=== PATIENT | male | born 1940 | race Caucasian/White ===

== ENCOUNTER 2024-10-12 10:14 | Outpatient (AMB) | payer MEDICARE, SELFPAY ==
--- OUTSIDE RECORDS SUMMARY | 2024-10-12 11:19 | XMS_ITS | Clinical Summary ---
Author Organization [facility] [employer] direct marketing concepts [facility] Address [address] [place] [address] Phone Care Team Providers Care Wireless Sales Associate Name Role Phone Fior Chavez MD Primary Care Provider [phone] Allergies Active Allergy Reactions Criticality Noted Date Comments Sulfa (Sulfonamide Antibiotics) Hives 01/18 Medications vit B complx/folic acid/lysine (B COMPLEX VITAMINS PO) daily. 0 Active multivitamin (MULTIPLE VITAMINS ORAL) Take by mouth daily. Active OMEPRAZOLE ORAL Take 20 mg by mouth 2 times daily. 0 Active SIMVASTATIN ORAL Take 20 mg by mouth daily. 0 Active tamsulosin HCl (TAMSULOSIN ORAL) Take 0.4 mg by mouth daily. 0 Active acetaminophen (TYLENOL) 500 mg tablet Take 1 tablet (500 mg total) by mouth as needed. Active mirtazapine (REMERON) 30 mg tablet Take 1 Tablet by mouth at bedtime. Active amLODIPine-benaz epril (LOTREL) 5-10 mg per capsule Take 1 capsule by mouth 1 (one) time each day. Active vit A/vit C/vit E/zinc/copper (PRESERVISION AREDS ORAL) Take 32 capsules by mouth 1 (one) time each day. Active melatonin 3 mg tablet Take 10 mg by mouth at bedtime. Active gabapentin (NEURONTIN) 100 mg capsule Take 1 capsule (100 mg total) by mouth at bedtime. Active peg 400-propylene glycol, PF, (Systane, PF,) 0.4-0.3 % dropperette Administer into both eyes 1 (one) time each day if needed. 1 drop Active Active Problems Problem Noted Date Diagnosed Date Shortness of breath 01/31/2024 Assessment & Plan (01/31/2024 5:16 PM EST): Patient is exhibited symptoms of decreased exercise tolerance. Has risk factors for coronary disease. He will be sent for a stress test throughout the possibility underlying ischemic disease Bradycardia 02/03/2020 Overview (01/23/2024): Last Assessment & Plan: Patient with no complaints of palpitations lightheadedness or dizziness. No bradycardia. He is off beta-bulmaro therapy. His blood pressures under excellent control on amlodipine. Recent Holter monitor with no evidence of sustained arrhythmias. At this point with a negative echo and negative stress test and the Holter is benign I will see the patient on an as-needed basis I will continue present medical therapy for hypertension and have him follow-up as needed. Assessment & Plan (01/31/2024 10:07 AM EST): Orders: ECG 12 lead Hypertension 02/03/2020 Overview (01/23/2024): Last Assessment & Plan: Blood pressures under excellent control medically Medical History Medical History Date Comments Essential hypertension DX:Essent ial hypertension Family History Medical History Relation Name Comments Hypertension Father Anemia Mother Hypertension Mother Hypertension Sister Relation Name Status Comments Father Mother Sister Alive Social History Tobacco Use Types Packs/Day Years Used Date Smoking Tobacco: Never Smokeless Tobacco: Never Alcohol Use Standard Drinks/Week Comments Not Currently 0 (1 standard drink = 0.6 oz pur e alcohol) socially Sex and Gender Information Value Date Recorded Sex Assigned at Male 03/25/2024 11:47 AM EST Legal Sex Male 5:41 AM EST Gender Identity Male 03/25/2024 11:47 AM EST Sexual Orientation Choose not to disclose 2024 11:47 AM EST Obstetrics History Last Filed Vital Signs Vital Sign Reading Time Taken Comments Blood Pressure 160/69 03/10/2024 8:49 AM EST Pulse 65 01/31/2024 9:19 AM EST Temperature - - Respiratory Rate - - Oxygen Saturation 98% 01/31/2024 9:19 AM EST Inhaled Oxygen Concentration - - Weight 64 kg (141 lb) 03/10/2024 8:32 AM EST Height 162.6 cm (5' 4 ) 03/10/2024 8:32 AM EST Body Mass Index 24.2 03/10/2024 8:32 AM EST Plan of Treatment Health Maintenance Due Date Last Done Comments Cholesterol Screening (Lipid Panel) 01/21/2022 Falls Risk Assessment 01/21/2022 Social Influencers of Health Screening 01/21/2022 Hypertension/CHF/CAD Annual BMP Blood Test 01/31/2022 Medicare Annual Wellness Visit 05/15/2023 05/14/2022 Depression Screening 02/19/2024 COVID-19 Vaccine ( season) 2024 01/22/2024, 11/07/2022, 10/25/2021, Additional history exists Influenza Vaccine (#1) 2024 , 10/31/2022, 10/25/2021, Additional history exists DTaP,Tdap,and Td Vaccines (2 - Td or Tdap) 02/08/2028 02/07/2018 Pneumococcal Vaccine: 50+ Years Completed 12/27/2015, 04/19/2014 Zoster Vaccines Completed 01/16/2020, 10/21, 11/16/2019, Additional history exists RSV Immunization Adult Patients Completed 11/07/2022 HIB Vaccines Aged Out No longer eligi ble based on patient's age to complete this topic HPV Vaccines Aged Out No longer eligi ble based on patient's age to complete this topic Hepatitis A Vaccines Aged Out No long er eligible based on patient's age to complete this topic Hepatitis B Vaccines Aged Out No long er eligible based on patient's age to complete this topic IPV Vaccines Aged Out No longer eligi ble based on patient's age to complete this topic MMR Vaccines Aged Out No longer eligi ble based on patient's age to complete this topic Meningococcal ACWY Vaccine Aged Out N o longer eligible based on patient's age to complete this topic Meningococcal B Vaccine Aged Out No l onger eligible based on patient's age to complete this topic RSV Immunization Patients Under 20 months Aged Out No longer eligible based on patient's age to complete this topic Varicella Vaccines Aged Out No longer eligible based on patient's age to complete this topic Insurance MEDICARE [facility] Care Teams Wireless Sales Associate Relationship Specialty Start Date End Date Fior Chavez MD [address] [phone] PCP - General 01/04/22
--- OUTSIDE RECORDS SUMMARY | 2024-10-12 11:19 | XMS_ITS | Clinical Summary ---
Author Organization [facility], Address [address] [place] [address] [place] [address] Phone Care Team Providers Care Log Chipper Operator Name Role Phone Fior Chavez MD Primary Care Provider [phone] Allergies Active Allergy Reactions Criticality Noted Date Comments Sulfa Antibiotics Hives High 02/22/2020 Sulfur Hives 09/18/2022 Medications acetaminophen (TYLENOL) 500 MG tablet Take by mouth every 6 (six) hours if needed for mild pain Active ascorbic acid (VITAMIN C) 500 MG CR capsule Take 500 mg by mouth 1 (one) time each day Active B complex tablet Take 1 tablet by mouth 1 (one) time each day Active butalbital-acet aminophen-caffe ine (FIORICET, ESGIC) 50-325-40 MG per tablet Take 1 tablet by mouth every 4 (four) hours if needed for headaches Active ferrous sulfate 325 (65 Fe) MG tablet Take 325 mg by mouth 1 (one) time each day with breakfast Active Multiple Vitamin (multivitamin) capsule Take 1 capsule by mouth 1 (one) time each day Active omeprazole (PriLOSEC) [address] capsule Take 20 mg by mouth 1 (one) time each day Do not crush or chew. Active Polyethyl Glycol-Propyl Glycol (Systane) 0.4-0.3 % solution Administer into affected eye(s) Active tamsulosin (FLOMAX) 0.4 MG 24 hr capsule Take 0.4 mg by mouth 1 (one) time each day Active Cholecalciferol (Vitamin D3) 25 MCG (1000 UT) chewable tablet Chew Acti ve alpha tocopherol (VITAMIN E) 400 units capsule Take 400 Units by mouth 1 (one) time each day Active amLODIPine-moira zepril (LOTREL 5-10) 5-10 MG per capsule TAKE 1 CAPSULE BY MOUTH EVERY DAY DIRECTED 3 Active mirtazapine (REMERON) 45 MG tablet Take 45 mg by mouth 1 (one) time each day in the evening 3 Active Active Problems Problem Noted Date Diagnosed Date Stage 3a chronic kidney disease 02/22/2020 Hypertension 02/22/2020 Immunizations Immunization Administration Dates Next Due H1N1 All Forms 03/03/2009 Influenza (IM) Preservative Free 11/03/2014,12/19 Influenza Split High Dose Pr eservative Free IM 12/12/2018,11/19/2017,01/04/2017,10/19 Influenza TIV (IM) 12/03/2012, 2,10/19/2009,10/19,11/18/2006 Influenza Vaccine, Quadrival ent, Adjuvanted 11/05/2019 Pneumococcal Conjugate 13-Valent 04/19/2014 Pneumococcal Polysaccharide 12/27/2015 Td 02/07/2018 Zoster 11/16/2019,12/03/2012 Social History Tobacco Use Types Packs/Day Years Used Date Smoking Tobacco: Never Smokeless Tobacco: Never Sex and Gender Information Value Date Recorded Sex Assigned at Not on file Legal Sex Male 3:40 PM EST Gender Identity Not on file Sexual Orientation Not on file Last Filed Vital Signs Vital Sign Reading Time Taken Comments Blood Pressure 140/60 01/17/2024 4:05 PM EST Pulse - - Temperature - - Respiratory Rate - - Oxygen Saturation - - Inhaled Oxygen Concentration - - Weight - - Height - - Body Mass Index - - Plan of Treatment Health Maintenance Due Date Last Done Comments Influenza Vaccine (#1) 2024 0, 12/12/2018, 11/19/2017, Additional history exists Pneumococcal Vaccine: 50+ Years Completed 12/27/2015, 04/19/2014 Pneumococcal Vaccine: Peds (0 to 5 Years) and At-Risk Patients (6 to 49 Years) Discontinued 12/27/2015, 04/19/2014 Hepatitis B Vaccine Aged Out No longe r eligible based on patient's age to complete this topic Insurance Medicare [facility] Care Teams Log Chipper Operator Relationship Specialty Start Date End Date Fior Chavez MD [address] [phone] PCP - General Family Medicine 09/22/21
== END 2024-10-13 10:06 | disposition home or self-care (01) ==
LOC: HO.HMGAL 10:14
PROVIDERS: PCP Family Medicine; Visit Provider Registered Nurse Emergency
DX: J30.89 Other allergic rhinitis (principal)
CPT/HCPCS: 95117; 95165

== ENCOUNTER 2024-11-11 10:20 | Outpatient (AMB) | payer MEDICARE, SELFPAY ==
--- OUTSIDE RECORDS SUMMARY | 2024-11-11 12:43 | XMS_ITS | Clinical Summary ---
Author Organization [facility], Address [address] [place] [address] [place] [address] Phone Care Team Providers Care Solar Sales Manager Name Role Phone Fior Chavez MD Primary Care Provider [phone] Allergies Active Allergy Reactions Criticality Noted Date [...] age to complete this topic Insurance Medicare [facility] Care Teams Solar Sales Manager Relationship Specialty Start Date End Date Fior Chavez MD [address] [phone] PCP - General Family Medicine 09/22/21
== END 2024-11-11 10:27 | disposition home or self-care (01) ==
LOC: HO.HMGAL 10:20
PROVIDERS: PCP Family Medicine; Visit Provider Registered Nurse Emergency
DX: J30.89 Other allergic rhinitis (principal)
CPT/HCPCS: 95117; 95165

== ENCOUNTER 2024-12-09 11:14 | Outpatient (AMB) | payer MEDICARE, SELFPAY ==
--- OUTSIDE RECORDS SUMMARY | 2024-12-09 15:19 | XMS_ITS | Clinical Summary ---
Author Organization [facility] [employer] [facility] Address [address] [place] [address] Phone Care Team Providers Care Mr Teacher Name Role Phone Fior Chavez MD Primary Care Provider [phone] Allergies Active Allergy Reactions Criticality Noted Date [...] age to complete this topic Insurance MEDICARE [facility] Care Teams Mr Teacher Relationship Specialty Start Date End Date Fior Chavez MD [address] [phone] PCP - General 01/04/22
== END 2024-12-09 11:30 | disposition home or self-care (01) ==
LOC: HO.HMGAL 11:14
PROVIDERS: PCP Family Medicine; Visit Provider Registered Nurse Emergency
DX: J30.89 Other allergic rhinitis (principal)
CPT/HCPCS: 95117; 95165

== ENCOUNTER 2025-01-06 09:56 | Outpatient (AMB) | payer MEDICARE, SELFPAY ==
--- OUTSIDE RECORDS SUMMARY | 2025-01-06 18:34 | XMS_ITS | Data Portability ---
Author Organization [place], Main Office Address [address] [facility] [address] [place] [phone] Care Team Providers Care Tile Mechanic Name Role Phone KAREN STONE Clinical Lab Scientist [facility] Neurologist [phone] KAREN WILLIAMSON Clinical Lab Scientist HUMBERTO SEGURA Retail Attendant [phone] BIA PINEDA Urologist NHUNG YARBROUGH Senior Director Insight HUMBERTO ANDERSON Delivery Truck Driver LEYLA ROA Primary Care Provider Assessment Encounter Date Assessment Date Assessment LastModified by Organization Details LastModified Time 09/19/2023 09/19/2023 This service was provided using telemedicine. Patient consented to telephone visit Patient was located in the [facility]. Provider was located in the office. No other persons participated in the telemedicine visit except for the patient unless otherwise indicated here. Total time of visit was 10 minutes. [email or web address] Not available 09/19/2023 15:34:54 Plan of Treatment Reminders Order Date Submit Date Provider Last Modified By Organization Details Last Modified Time Details Appointments [id number] 2024 10:00A Red Roa MD Not available Not available Not available Lab None record ed. Referral hand surgeo n referr al - left ring finger trigge r finger x 2 months 2024 025 [email or web address] [facility], [address], [address], [place], [address], 10/21/2024 14:29:43 physic al medici ne and rehabi litati on referr al 2024 025 DAREN Chino MD, [address] [facility], [facility] [address], [place], [address], 07/24/2024 15:44:17 breast center referr al 2024 025 belinda [facility], [address], [address], [place], [address], 07/09/2024 10:59:58 urolog ist referr al 2023 024 [facility], [address], [place], [address], 03/16/2024 09:16:25 Procedures None record ed. Surgeries None record ed. Imaging XR, lumbar spine 2024 025 [facility], [address], [place], [address], 07/03/2024 14:33:55 XR, hip, unilat eral, 2 or 3 view 2024 025 [facility], [address] [place], [address], 07/03/2024 14:33:16 US, breast , unilat eral - + mild gyneco mastia B L breast - no nipple dc, + skin tag on nipple (has always been there as per pt), + tender at 3:00 positi on adjace nt to nipple , no mass apprec iated 2024 025 pmadden [facility], [address], [address], [place], [address], 08/06/2024 13:51:11 MAMMO, diagno stic, digita l, unilat eral 2024 025 [email or web address], [address], [address], [place], [address], 08/03/2024 11:09:11 Medication Orders tadala pernell 2.5 mg tablet 2024 025 [facility]acy #[id number], [address] [place], [address], 09/01/2024 14:03:12 Paxlov id 300 mg (150 mg x 2)-100 mg tablet s in a dose pack 2023 024 [facility] #[id number], [address] [place], [address], 01/15/2024 10:28:58 Patient TargetsNo targets recorded. Patient Instructions Encounter Date Encounter Id Patient Instructions Last Modified By Organization Details Last Modified Time 09/19/2023 [id number] 10 things to do when you have covid-19 [email or web address] Not available 09/19/2023 15:32:22 01/15/2024 [id number] advance care planning: care instructions [email or web address] Not available 01/15/2024 10:56:24 medicines to avoid with kidney disease: care instructions [email or web address] Not available 01/15/2024 10:44:05 benign prostatic hyperplasia: care instructions ckokar Not available 01/15/2024 10:44:05 07/02/2024 [id number] Patient will follow up and keep appointment as scheduled. [email or web address] Not available 07/02/2024 10:47:14 09/01/2024 [id number] medicines to avoid with kidney disease: care instructions ckokar Not available 09/01/2024 14:03:11 benign prostatic hyperplasia: care instructions ckokar Not available 09/01/2024 14:03:11 10/21/2024 [id number] wearing a splint: care instructions Not available 10/21/2024 14:23:52 trigger finger: care instructions Not available 10/21/2024 15:39:30 I have reviewed the note and agree with the assessment and plan of care. [email or web address] Not available 10/21/2024 17:21:03 Reason for Referral Urologist Referral for Benig n prostatic hyperplasia Referring Physician: Leyla Roa, Family Medicine, Encounter Date: 01/15/2024 Breast Center Referral for P ain of left breast Referring Physician: Renato Ferguson, Internal Medicine, Encounter Date: 07/02/2024 Physical Medicine And Rehabi litation Referral for Acute low back pain Referring Physician: Renato Ferguson, Internal Medicine, Encounter Date: 07/02/2024 Hand Surgeon Referral for Tr iggering of digit left ring finger trigger finger x 2 months Referring Physician: Guerline Stewart, Family Medicine, Encounter Date: 10/21/2024 Results Created Date Observation Date Name Description Value Unit Range Abnormal Flag Note LastModifiedBy Organization Detail LastModifiedTime 08/27/19 24 08/27/2023 HARLEY, PE AND FLC, SERUM please note: [facility] will follo w via compu ter, mail, or couri er catie dunlap. Not Available [facility] ([facility]) [address] [place], [address], 09/02/2023 14:14:12 08/27/19 24 08/28/2023 HARLEY, PE AND FLC, SERUM immunoglobul in g, qn, serum 842 mg/dL 603-16 13 Not Available [facility] ([facility]) [address] [place], [address], 09/02/2023 14:14:12 08/27/19 24 08/28/2023 HARLEY, PE AND FLC, SERUM immunoglobul in A, qn, serum 84 mg/dL 61-437 Not Available [facility] ([facility]) [address] [place], [address], 09/02/2023 14:14:12 08/27/19 24 08/28/2023 HARLEY, PE AND FLC, SERUM immunoglobul in M, qn, serum 68 mg/dL 15-143 Not Available [facility] ([facility]) [address] [place], [address], 09/02/2023 14:14:12 08/27/19 24 08/28/2023 HARLEY, PE AND FLC, SERUM protein, total 6.5 g/dL 6.0-8. 5 Not Available [facility] ([facility]) [address] [place], [address], 09/02/2023 14:14:12 08/27/19 24 08/28/2023 HARLEY, PE AND FLC, SERUM free kappa lt chains,S 20.4 mg/L 3.3-19 .4 above high normal Not Available [facility] ([facility]) [address] [place], [address], 09/02/2023 14:14:12 08/27/19 24 08/28/2023 HARLEY, PE AND FLC, SERUM free lambda lt chains,S 16.2 mg/L 5.7-26 .3 Not Available [facility] ([facility]) [address] [place], [address], 09/02/2023 14:14:12 08/27/19 24 08/28/2023 HARLEY, PE AND FLC, SERUM kappa/lambda ratio,S 1.26 0.26-1 .65 Not Available [facility] ([facility]) [address] [place], [address], 09/02/2023 14:14:12 08/27/19 24 08/29/2023 HARLEY, PE AND FLC, SERUM albumin 3.3 g/dL 2.9-4. 4 Not Available [facility] ([facility]) [address] [place], [address], 09/02/2023 14:14:12 08/27/19 24 08/29/2023 HARLEY, PE AND FLC, SERUM pchku-2-efne ulin 0.3 g/dL 0.0-0. 4 Not Available [facility] ([facility]) [address] [place], [address], 09/02/2023 14:14:12 08/27/19 24 08/29/2023 HARLEY, PE AND FLC, SERUM slycg-7-obub ulin 0.9 g/dL 0.4-1. 0 Not Available [facility] ([facility]) [address] [place], [address], 09/02/2023 14:14:12 08/27/19 24 08/29/2023 HARLEY, PE AND FLC, SERUM beta globulin 0.9 g/dL 0.7-1. 3 Not Available [facility] ([facility]) [address] [place], [address], 09/02/2023 14:14:12 08/27/19 24 08/29/2023 HARLEY, PE AND FLC, SERUM gamma globulin 1.1 g/dL 0.4-1. 8 Not Available [facility] ([facility]) [address] [place], [address], 09/02/2023 14:14:12 08/27/19 24 08/29/2023 HARLEY, PE AND FLC, SERUM M-spike Not Observ ed g/dL not observ ed Not Available [facility] ([facility]) [address], [place], [address], 09/02/2023 14:14:12 08/27/19 24 08/29/2023 HARLEY, PE AND FLC, SERUM globulin, total 3.2 g/dL 2.2-3. 9 Not Available [facility] ([facility]) [address] [place], [address], 09/02/2023 14:14:12 08/27/19 24 08/29/2023 HARLEY, PE AND FLC, SERUM A/G ratio 1.1 0.7-1. 7 Not Available [facility] ([facility]) [address] [place], [address], 09/02/2023 14:14:12 08/27/19 24 08/29/2023 HARLEY, PE AND FLC, SERUM immunofixati on result, serum Commen t The immun ofixa travis bautista rn appea rs unrem arkab le. Evide nce of monoc lonal prote in is not appar ent. Not Available [facility] ([facility]) [address] [facility], [place], [address], 09/02/2023 14:14:12 08/27/19 24 08/29/2023 HARLEY, PE AND FLC, SERUM pdf . Not Available [facility] ([facility]) [address] [facility], [place], [address], 09/02/2023 14:14:12 08/27/19 24 08/27/2023 HARLEY AND PE, RANDO M URINE note: Commen t Prote in elect [facility] resis scan will follo w via compu ter, mail, or couri manan dunlap. Not Available [facility] ([facility]) [address] [facility], [place], [address], 09/02/2023 14:14:13 08/27/19 24 08/28/2023 HARLEY AND PE, RANDO M URINE protein,tota l,urine 11.8 mg/dL not estab. Not Available [facility] ([facility]) [address] [place], [address], 09/02/2023 14:14:13 08/27/19 24 08/29/2023 HARLEY AND PE, RANDO M URINE albumin, U 25.9 % Not Available [facility] ([facility]) [address] [facility], [place], [address], 09/02/2023 14:14:13 08/27/19 24 08/29/2023 HARLEY AND PE, RANDO M URINE dlnej-2-iynb ulin, U 4.3 % Not Available [facility] ([facility]) [address] [place], [address], 09/02/2023 14:14:13 08/27/19 24 08/29/2023 HARLEY AND PE, RANDO M URINE eygyo-5-qvyc ulin, U 17.5 % Not Available [facility] ([facility]) [address] [facility], [place], [address], 09/02/2023 14:14:13 08/27/19 24 08/29/2023 HARLEY AND PE, RANDO M URINE beta globulin, U 34.0 % Not Available [facility] ([facility]) [address] [place], [address], 09/02/2023 14:14:13 08/27/19 24 08/29/2023 HARLEY AND PE, RANDO M URINE gamma globulin, U 18.3 % Not Available [facility] ([facility]) [address] [place], [address], 09/02/2023 14:14:13 08/27/19 24 08/29/2023 HARLEY AND PE, RANDO M URINE M-spike, % Not Observ ed % not observ ed Not Available [facility] ([facility]) [address] [facility], [place], [address], 09/02/2023 14:14:13 08/27/19 24 08/29/2023 HARLEY AND PE, RANDO M URINE immunofixati on result, urine Commen t The immun ofixa tion lily rn appea rs unrem arkab le. Evide nce of monoc lonal prote in is not appar ent. Not Available [facility] ([facility]) [address] [place], [address], 09/02/2023 14:14:13 08/27/19 24 08/29/2023 HARLEY AND PE, RANDO M URINE pdf . Not Available [facility] ([facility]) [address] [place], [address], 09/02/2023 14:14:13 08/27/19 24 08/27/2023 TICK- BORNE DISEA SE AB PROFI LE result comments: Commen t Antib real titer s may be negat hernán in the first 7-10 days of illne ss. A four- fold rise in IgG antib real titer s for Babes ia micro ti, Anapl asma phago cytop hilum , and/o r Ehrli tonie chaff eensi s in paire d sampl es (acut e and conva lesce nt) suppo rts the diagn osis of babes iosis , anapl asmos is, and/o r ehrli chios is, respe ctive ly. Not Available [facility] ([facility]) [address] [facility], [place], [address], 09/02/2023 14:14:13 08/27/19 24 08/28/2023 TICK- BORNE DISEA SE AB PROFI LE lyme total antibody krystal Negati ve negati ve Lyme antib odies not detec schuyler. Refle x testi ng is not indic ated. No labor atory evide nce of infec tion with B. burgd orfer i (Lyme disea se). Negat hernán resul ts may occur in patie nts recen tly infec schuyler (less than or equal to 14 days) with B. burgd orfer i. If recen t infec tion is suspe cted, repea t testi ng on a new sampl e colle cted in 7 to 14 days is recom adrien d. Not Available [facility] ([facility]) [address] [facility], [place], [address], 09/02/2023 14:14:13 08/27/19 24 08/30/2023 TICK- BORNE DISEA SE AB PROFI LE E. chaffeensis IgG Negati ve neg:<1 :64 Not Available [facility] ([facility]) [address] [facility], [place], [address], 09/02/2023 14:14:13 08/27/19 24 08/30/2023 TICK- BORNE DISEA SE AB PROFI LE A. phagocytophi lum IgG Negati ve neg:<1 :64 Not Available [facility] ([facility]) [address] [place], [address], 09/02/2023 14:14:13 08/27/19 24 09/02/2023 TICK- BORNE DISEA SE AB PROFI LE babesia microti IgG <1:10 neg:<1 :10 Not Available [facility] ([facility]) [address] [place], [address], 09/02/2023 14:14:13 08/27/19 24 08/28/2023 HEMOG LOBIN A1C hemoglobin A1C 5.4 % 4.8-5. 6 Predi abete s: 5.7 - 6.4 Diabe trini: >6.4 Glyce avi contr ol for adult s with diabe trini: <7.0 Not Available [facility] ([facility]) [address] [place], [address], 09/02/2023 14:14:14 08/27/19 24 08/28/2023 RHEUM ATOID FACTO R (RF) rheumatoid factor (rf) 10.8 IU/mL <14.0 Not Available [facility] ([facility]) [address] [place], [address], 09/02/2023 14:14:15 08/27/19 24 08/30/2023 VITAM IN B1 (THIA MINE) , BLOOD vit. B1, whole blood 192.4 nmol/ L 66.5-2 00.0 Not Available [facility] ([facility]) [address] [place], [address], 09/02/2023 14:14:15 08/27/19 24 08/29/2023 CCP ANTIB ODIES IGG/I GA ccp antibodies IgG/IgA 10 units 0-19 Negat hernán <20 Weak posit hernán 20 - 39 Moder ate posit hernán 40 - 59 Stron g posit hernán >59 Value s above 250 units are repor schuyler at the reque st of the [facility] t. Such value s are beyon d the linea rity range of the assay . Not Available [facility] ([facility]) [address] [facility], [place], [address], 09/02/2023 14:14:16 08/27/19 24 08/28/2023 TSH RFX ON ABNOR MAL TO FREE T4 TSH 1.140 uIU/m L 0.450- 4.500 Not Available [facility] ([facility]) [address] [facility], [place], [address], 09/02/2023 14:14:17 08/27/19 24 08/28/2023 SEDIM ENTAT ION RATE- WESTE RGREN sedimentatio n rate-westerg terence 17 mm/HR 0-30 Not Available [facility] ([facility]) [address] [facility], [place], [address], 09/02/2023 14:14:18 08/27/19 24 08/28/2023 C-RENALDO CTIVE PROTE IN, QUANT C-reactive protein, quant 5 mg/L 0-10 Not Available [facility] ([facility]) [address] [facility], [place], [address], 09/02/2023 14:14:19 08/27/19 24 08/30/2023 ALEE BY IFA RFX TITER /RIGOBERTO MESHA ALEE by ifa rfx titer/patter n Negati ve Negat hernán <1:80 Borde rline 1:80 Posit hernán >1:80 ICAP nomen clatu re: AC-0 For more infor matio n about Hep-2 cell patte rns use ANAsam ttern s.org , the offic ial joann te for the Inter natio nal Conse nsus on Antin uclea r Antib real (ALEE) Patte rns (ICAP ). Not Available [facility] ([facility]) [address] [facility], [place], [address], 09/02/2023 14:14:19 11/06/19 24 11/06/2023 ankle brach ial index , compl ete No observ ation record ed. [facility] (Pulmonary Lab) [address] [place], [address], 11/07/2023 08:41:33 01/31/20 24 ECG 12-le ad No observ ation record ed. [address], [address], 01/31/2024 17:14:15 02/21/19 25 02/17/2024 stres s test only exerc ise No observ ation record ed. [address], [address], 02/23/2024 18:52:30 03/10/19 25 03/10/2024 nm stres s test with myoca rdial perfu jeff No observ ation record ed. [address], [address], 03/11/2024 06:15:39 03/18/19 25 03/10/2024 cardi ac stres s test No observ ation record ed. [facility] [address] [facility] [address], [place], [address], 03/18/2024 15:14:10 07/04/19 25 07/02/2024 XR, hip, unila teral , 2 or 3 view Hip Comp 2 Views Right Reason : Pain in right hip COMPAR ARNAUD: None. FINDIN GS: No fractu re or disloc ation. Subcho ndral cysts and mild subcho ndral sclero sis of the right hip. Phlebo liths in the pelvis . IMPRES JEFF: Mild degene rative change of the right hip. WSN: [id number] Orderi ng Physic lanie: Steve Ferguson Dictat ed By: Sahil MEJIA, Levi Cardenas Dictat ed Date/T yang: 2:30 pm Review ed By: Levi Baxter MD Signed By: Levi Baxter MD Signed Date/T yang: 2:30 pm Transc ribed By: ZEHRA Transc ribed Date/T yang: 2:29 pm Patien t Class: Outpat ient [facility] (Outpt Imaging) [address] [place], [address], 07/04/2024 16:14:24 07/04/19 25 07/02/2024 XR, lumba r spine Lumbar Spine 2 or 3 Views Reason : low back pain COMPAR ARNAUD: None. FINDIN GS: No bone lesion s or fractu res. Mild multif ocal degene rative disc endpla te spurri ng and disc space narrow ing. Multil evel bilate ral facet hypert rophy in the lower lumbar spine. Normal alignm ent. No spondy lolysi s or spondy lolist hesis. Mild vascul ar calcif icatio ns. IMPRES JEFF: Degene rative change s but no eviden ce of an acute proces s. WSN: [id number] Orderi ng Physic lanie: Steve Ferguson Dictat ed By: Levi Baxter MD Dictat ed Date/T yang: 2:30 pm Review ed By: Levi Baxter MD Signed By: Levi Baxter MD Signed Date/T yang: 2:30 pm Transc ribed By: ZEHRA Transc ribed Date/T yang: 2:30 pm Patien t Class: Outpat ient [facility] (Outpt Imaging) [address] [place], [address], 07/04/2024 16:14:24 08/07/19 25 08/06/2024 US, breas t, limit ed PROCED URE: MM Digita l Mammo Bilate ral, US Breast Left Limite d INDICA TION: Left breast pain. No known palpab le abnorm alitie s. COMPAR ARNAUD: No prior. TECHNI QUE: Full-f ield digita l CC and MLO 3D tomosy nthesi s images of both breast s were acquir ed. Comput er-aid ed detect ion (CAD) was utiliz ed in the interp retati on of this study. Diagno stic ultras ound of the left breast in the area of pain was perfor med. This is a male patien t. DENSIT Y: There are scatte red areas of fibrog landul ar densit y. FINDIN GS: There is bilate ral gyneco mastia . No suspic ious masses , suspic ious microc alcifi cation s, or areas of holly ectura l distor tion are seen in either breast to sugges t malign urszula. Sonogr aphic evalua tion of the left breast in the area of pain, retroa reolar region was perfor med. Asymme tric left greate r than right gyneco mastia is presen t. IMPRES JEFF: No mammog raphic eviden ce of malign urszula. Asymme tric left greate r than right gyneco mastia . Clinic al follow -up is advise d. RECOMM ENDATI ON: Clinic al follow -up and manage ment BI-RAD S: 2 (Benbijal n) Lay letter mailed to patien t WSN: [id number] Orderi ng Physic lanie: Steve Ferguson Dictat ed By: Regina Thomas MD Dictat ed Date/T yang: 1:41 pm Review ed By: Regina Thomas MD Signed By: Regina Thomas MD Signed Date/T yang: 1:41 pm Transc ribed By: ZEHRA Transc ribed Date/T yang: 1:18 pm Patien t [facility] [address] , [place], [address], 08/20/2024 10:38:04 08/07/19 25 08/06/2024 mm digit al mammo bilat eral PROCED URE: MM Digita l Mammo Bilate ral, US Breast Left Limite d INDICA TION: Left breast pain. No known palpab le abnorm alitie s. COMPAR ARNAUD: No prior. TECHNI QUE: Full-f ield digita l CC and MLO 3D tomosy nthesi s images of both breast s were acquir ed. Comput er-aid ed detect ion (CAD) was utiliz ed in the interp retati on of this study. Diagno stic ultras ound of the left breast in the area of pain was perfor med. This is a male patien t. DENSIT Y: There are scatte red areas of fibrog landul ar densit y. FINDIN GS: There is bilate ral gyneco mastia . No suspic ious masses , suspic ious microc alcifi cation s, or areas of holly ectura l distor tion are seen in either breast to sugges t malign urszula. Sonogr aphic evalua tion of the left breast in the area of pain, retroa reolar region was perfor med. Asymme tric left greate r than right gyneco mastia is presen t. IMPRES JEFF: No mammog raphic eviden ce of malign urszula. Asymme tric left greate r than right gyneco mastia . Clinic al follow -up is advise d. RECOMM ENDATI ON: Clinic al follow -up and manage ment BI-RAD S: 2 (Benig n) Lay letter mailed to calderon benites WSN: [id number] Orderi ng Physic lanie: Steve Ferguson Dictat ed By: Regina Thomas MD Dictat ed Date/T yang: 1:41 pm Review ed By: Regina Thomas MD Signed By: Regina Thomas MD Signed Date/T yang: 1:41 pm Transc ribed By: ZEHRA Transc riptio n Date/T yang: 1:18 pm Birads : Calderon benites [facility] [address] [facility], [place], [address], 08/20/2024 10:38:04 Result Notes Documentation Provider Name and Address Organization Details Recorded Time Xr, Hip, Unilateral, 2 Or 3 View : Hip Comp 2 Views Right Reason: Pain in right hip COMPARISON: None. FINDINGS: No fracture or dislocation. Subchondral cysts and mild subchondral sclerosis of the right hip. Phleboliths in the pelvis. IMPRESSION: Mild degenerative change of the right hip. WSN: [id number] Ordering Physician: Renato Ferguson Dictated By: Philippe Baxter MD Dictated Date/Time: 07/03/24 2:30 pm Reviewed By: Philippe Baxter MD Signed By: Philippe Baxter MD Signed Date/Time: 07/03/24 2:30 pm Transcribed By: ZEHRA Transcribed Date/Time: 07/03/24 2:29 pm Patient Class: Outpatient Renato Ferguson PA-C [address], [address], [facility] 07/04/2024 10:17:36 Xr, Lumbar Spine : Lumbar Spine 2 or 3 Views Reason: low back pain COMPARISON: None. FINDINGS: No bone lesions or fractures. Mild multifocal degenerative disc endplate spurring and disc space narrowing. Multilevel bilateral facet hypertrophy in the lower lumbar spine. Normal alignment. No spondylolysis or spondylolisthesis. Mild vascular calcifications. IMPRESSION: Degenerative changes but no evidence of an acute process. WSN: [id number] Ordering Physician: Renato Ferguson Dictated By: Philippe Baxter MD Dictated Date/Time: 07/03/24 2:30 pm Reviewed By: Philippe Baxter MD Signed By: Philippe Baxter MD Signed Date/Time: 07/03/24 2:30 pm Transcribed By: ZEHRA Transcribed Date/Time: 07/03/24 2:30 pm Patient Class: Outpatient Renato Ferguson PA-C [address], [address], [facility] 07/04/2024 10:17:36 Problems Name Problem SNOMED Code Status Onset Date Resolution Date Notes Provider Name and Address Organization Details Recorded Time Fatigue 34099102 Completed 05/13/2022 Leyla Roa MD [address], [phone], [facility] 3 15:08:27 Cervical radiculo alicia [id number] Active [facility] 11:24:59 Cataract [id number] Completed 05/12/2021 Leyla Roa MD [address], [place], [address], [facility] 2 10:34:57 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 Aaliyah Gonsales CPPM null, [facility] 2 11:24:59 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 Aaliyah Gonsales CPPM null, [facility] 2 11:24:58 Screenin g for malignan t neoplasm of colon Completed 200809/24/2013 RECORDED 06/16/19 09 8:27AM BY BHARATI SAUER MA, ANNOTATI ON/ADDEN DUM Samantha CROCKETT-C [address] [facility] [address], [place], [address], [facility] 5 10:40:06 Screenin g for malignan t neoplasm of colon Completed 200809/25/2013 RECORDED 06/16/19 09 8:27AM BY BHARATI SAUER MA, ANNOTATI ON/ADDEN DUM Samantha MELGARC [address] [facility] [address], [place], [address], [facility] [place] 5 10:40:06 Screenin g for malignan t neoplasm of colon Completed 200809/01/2013 RECORDED 06/16/19 09 8:27AM BY BHARATI SAUER MA, ANNOTATI ON/ADDEN DUM Samantha CROCKETT-C [address], [place], [address], [facility] [place] 5 10:40:06 Influenz a vaccine needed [id number] 06 Completed 200909/24/2013 RECORDED 03/03/19 10 2:18PM BY GRANT SAUER, NURSE VISIT Samantha Ferguson PA-C [address], [facility] [place], [address], [facility] [place] 5 10:40:06 Influenz a vaccine needed [id number] 06 Completed 200909/25/2013 RECORDED 03/03/19 10 2:18PM BY GRANT SAUER, NURSE VISIT [facility] [address], [place], [address], [facility] [place] 5 10:40:06 Influenz a vaccine needed [id number] 06 Completed 200909/01/2013 RECORDED 03/03/19 10 2:18PM BY GRANT SAUER, NURSE VISIT [facility] [address], [place], [address], [facility] [place] 5 10:40:06 Lateral epicondy litis [id number] Completed 201009/24/2013 RECORDED 03/21/19 11 9:34AM BY RAY RANDHAWA MD, ANNOTATI ON/ADDEN DUM Samantha Ferguson PA-C [address], [place], [address], [facility] [place] 5 10:40:06 Lateral epicondy litis [id number] Completed 201009/25/2013 RECORDED 03/21/19 11 9:34AM BY RAY RANDHAWA MD, ANNOTATI ON/ADDEN DUM Samantha Ferguson MO-C [address], [place], [address], [facility] [place] 5 10:40:06 Lateral epicondy litis [id number] Completed 201009/01/2013 RECORDED 03/21/19 11 9:34AM BY RAY RANDHAWA MD, ANNOTATI ON/ADDEN DUM Samantha Ferguson PA-C [address], [place], [address], [facility] [place] 5 10:40:06 Chalazio n [id number] Completed 201109/24/2013 RECORDED 03/26/19 12 10:49AM BY RAY RANDHAWA MD, ANNOTATI ON/ADDEN DUM Samantha Ferguson PA-C [address], [place], [address], [facility] [place] 5 10:40:06 [facility] [id number] Completed 201109/24/2013 RECORDED 03/26/19 12 10:49AM BY RAY RANDHAWA MD, ANNOTATI ON/ADDEN DUM Samantha Ferguson PA-C [address], [place], [address], [facility] [place] 5 10:40:06 Sindy n [id number] Completed 201109/25/2013 RECORDED 03/26/19 12 10:49AM BY RAY RANDHAWA MD, ANNOTATI ON/ADDEN DUM Samantha Ferguson PA-C [address], [place], [address], [facility] [place] 5 10:40:06 [facility] [id number] Completed 201109/25/2013 RECORDED 03/26/19 12 10:49AM BY RAY RANDHAWA MD, ANNOTATI ON/ADDEN DUM Samantha Ferguson PA-C [address], [place], [address], [facility] [place] 5 10:40:06 Sindy n [id number] Completed 201109/01/2013 RECORDED 03/26/19 12 10:49AM BY RAY RANDHAWA MD, ANNOTATI ON/ADDEN DUM Samantha Ferguson PA-C [address], [place], [address], [facility] [place] 5 10:40:06 Gout [id number] Completed 201109/01/2013 RECORDED 03/26/19 12 10:49AM BY RAY RANDHAWA MD, ANNOTATI ON/ADDEN DUM Samantha Ferguson PA-C [address], [place], [address], [facility] [place] 5 10:40:06 Disorder of skin [id number] Completed 201109/24/2013 RECORDED 09/26/19 12 9:53AM BY BHARATI SAUER MA, ANNOTATI ON/ADDEN DUM Samantha Ferguson PA-C [address], [place], [address], [facility] [place] 5 10:40:06 Respirat ory finding Completed 201109/24/2013 RECORDED 09/26/19 12 9:53AM BY BHARATI SAUER MA, ANNOTATI ON/ADDEN DUM Samantha Ferguson PA-C [address], [place], [address], [facility] [place] 5 10:40:06 Epistaxi s Completed 201109/24/2013 RECORDED 09/26/19 12 9:53AM BY BHARATI SAUER MA, ANNOTLA ON/ADDEN DUM Samantha Ferguson PA-C [address], [place], [address], [facility] [place] 5 10:40:06 Palpitat ions [id number] Completed 201109/24/2013 RECORDED 09/26/19 12 9:53AM BY BHARATI SAUER MA, ANNOTATI ON/ADDEN DUM Samantha Ferguson PA-C [address], [place], [address], [facility] [place] 5 10:40:06 Screenin g procedur e Completed 201109/24/2013 RECORDED 09/26/19 12 9:53AM BY BHARATI SAUER MA, ANNOTATI ON/ADDEN DUM Samantha Ferguson PA-C [address], [place], [address], [facility] [place] 5 10:40:06 Giant cell arteriti s Completed 201109/24/2013 RECORDED 09/26/19 12 10:53AM BY RAY RANDHAWA MD, ANNOTATI ON/ADDEN DUM Samantha Ferguson PA-C [address], [place], [address], [facility] [place] 5 10:40:06 Disorder of skin [id number] Completed 201109/25/2013 RECORDED 09/26/19 12 9:53AM BY BHARATI SAUER MA, ANNOTATI ON/ADDEN DUM Samantha Ferguson PA-C [address], [place], [address], [facility] [place] 5 10:40:06 Respirat ory finding Completed 201109/25/2013 RECORDED 09/26/19 12 9:53AM BY BHARATI SAUER MA, ANNOTATI ON/ADDEN DUM Samantha Ferguson PA-C [address], [place], [address], [facility] [place] 5 10:40:06 Epistaxi s Completed 201109/25/2013 RECORDED 09/26/19 12 9:53AM BY BHARATI SAUER MA, ANNOTATI ON/ADDEN DUM Samantha Ferguson PA-C [address], [place], [address], [facility] [place] 5 10:40:06 Palpitat ions [id number] Completed 201109/25/2013 RECORDED 09/26/19 12 9:53AM BY BHARATI SAUER MA, ANNOTATI ON/ADDEN DUM Samantha Ferguson PA-C [address], [place], [address], [facility] [place] 5 10:40:06 Screenin g procedur e Completed 201109/25/2013 RECORDED 09/26/19 12 9:53AM BY BHARATI SAUER MA, ANNOTATI ON/ADDEN DUM Samantha Ferguson PA-C [address], [place], [address], [facility] [place] 5 10:40:06 Giant cell arteriti s Completed 201109/25/2013 RECORDED 09/26/19 12 10:53AM BY RAY RANDHAWA MD, ANNOTATI ON/ADDEN DUM Samantha Ferguson PA-C [address], [place], [address], [facility] [place] 5 10:40:06 Disorder of skin [id number] Completed 201109/01/2013 RECORDED 09/26/19 12 9:53AM BY BHARATI SAUER MA, ANNOTATI ON/ADDEN DUM Samantha Ferguson PA-C [address], [place], [address], [facility] [place] 5 10:40:06 Respirat ory finding Completed 201109/01/2013 RECORDED 09/26/19 12 9:53AM BY BHARATI SAUER MA, SB ON/ADDEN DUM Samantha Ferguson PA-C [address], [place], [address], [facility] [place] 5 10:40:06 Epistaxi s Completed 201109/01/2013 RECORDED 09/26/19 12 9:53AM BY BHARATI SAUER MA, ANNOTATI ON/ADDEN DUM Samantha Ferguson PA-C [address], [place], [address], [facility] [place] 5 10:40:06 Palpitat ions [id number] Completed 201109/01/2013 RECORDED 09/26/19 12 9:53AM BY BHARATI SAUER MA, ANNOTATI ON/ADDEN DUM Samantha Ferguson MO-C [address], [place], [address], [facility] [place] 5 10:40:06 Screenin g procedur e Completed 201109/01/2013 RECORDED 09/26/19 12 9:53AM BY BHARATI SAUER MA, ANNOTATI ON/ADDEN DUM Samantha Ferguson PA-C [address], [place], [address], [facility] [place] 5 10:40:06 Giant cell arteriti s Completed 201109/01/2013 RECORDED 09/26/19 12 10:53AM BY RAY RANDHAWA MD, ANNOTATI ON/ADDEN DUM Samanthaamaya Ferguson MO-C [address], [place], [address], [facility] [place] 5 10:40:06 Gastroes ophageal reflux disease [id number] Completed 201209/01/2013 WITH BELCHING AND HEARTBUR N; RECORDED 03/03/19 13 9:03AM BY BHARATI SAUER MA, JUANPABLOATI ON/ADDEN DUM Ray Randhawa MD [address], [place], [address], [facility] [place] 9 13:20:22 Adult health examinat ion Completed 201209/01/2013 RECORDED 09/30/19 13 9:26AM BY BHARATI SAUER MA, ANNOTLA ON/ADDEN DUM Samantha Ferguson MO-C [address], [place], [address], [facility] [place] 5 10:40:06 Malaise and fatigue [id number] Completed 201309/24/2013 RECORDED 04/15/19 14 9:36AM BY BHARATI SAUER MA, ANNOTATI ON/ADDEN DUM Samantha Ferguson PA-C [address], [place], [address], [facility] [place] 5 10:40:06 Administ ration of viral vaccine Completed 201309/24/2013 RECORDED 04/15/19 14 9:36AM BY BHARATI SAUER MA, ANNOTATI ON/ADDEN DUM Samantha Ferguson PA-C [address], [place], [address], [facility] [place] 5 10:40:06 Malaise and fatigue [id number] Completed 201309/25/2013 RECORDED 04/15/19 14 9:36AM BY BHARATI SAUER MA, ANNOTATI ON/ADDEN DUM Samantha Ferguson PA-C [address], [place], [address], [facility] [place] 5 10:40:06 Administ ration of viral vaccine Completed 201309/25/2013 RECORDED 04/15/19 14 9:36AM BY BHARATI SAUER MA, ANNOTATI ON/ADDEN DUM Samantha Ferguson PA-C [address], [place], [address], [facility] 5 10:40:06 Allergic rhinitis 64752522 Active 2013 STORY: ALLERGY INJECTIO NS THROUGH ENT Aaliyah Gonsales CPP null, [place] 2 11:24:58 Urinary tract obstruct ion 3446466 Completed 201305/13/2022 Leyla Roa MD [address], [place], [address], [facility] [place] 3 15:08:58 Benign prostati c hyperpla chantelle 529295881 Active 2013 SYDNEY Wright, [place] 2 11:24:59 Esophagi tis 65404679 Completed 201312/27/2015 NO BARNES' S ESOPHAGI TIS; [place] Nielson, [place] 6 13:29:51 Gastroes ophageal reflux disease 292903623 Active 2013 History hiatal hernia. 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 RAI FOR NEURO SYDNEY Wright [place] 2 11:24:59 Diaphrag matic hernia 02938673 Active 2013 SYDNEY Wright, [place] 2 11:24:59 Hypercho lesterol emia 90121847 Completed 201305/13/2022 Leyla Roa MD [address], [place], [address], [facility] [place] 3 15:08:23 Hyperlip idemia 39490508 Active 2013 SYDNEY Wright, [place] 2 11:24:59 Low back pain 901436208 Active 2013 SYDNEY Wright, [place] 2 11:24:58 Migraine 22557770 Active 2013 STORY: STABLE WITH INTERMIT TENT USE OF BUTALBIT AL SYDNEY Wright, [place] 2 11:24:59 Obstruct hernán sleep apnea syndrome 67387226 Active 2013 STORY: RDI = 30. NOT ABLE TO TOLERATE THE CPAP SYDNEY Wright, [place] 2 11:24:59 Overweig ht 570636811 Completed 201305/13/2022 Leyla Roa MD [address] [facility] [address], [place], [address], [facility] [place] 3 15:08:08 Administ ration of viral vaccine Completed 201309/01/2013 RECORDED 04/15/19 14 9:36AM BY BHARATI SAUER MA, ANNOTATI ON/VIKAS Ferguson PA-C [address] [address], [place], [address], [facility] [place] 5 10:40:06 Non-smok er 4730567 Completed 201707/17/2023 Leyla Roa MD [address] [facility] [address], [place], [address], [facility] [place] 4 11:46:21 Prostati tis 4608478 Completed 201805/13/2022 Leyla Roa MD [address] [facility] [address], [address], [facility] [place] 3 15:07:56 Seasonal allergy 868919671 Active 2018 SYDNEY Wright, [place] 2 11:24:58 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 72741210 Active 2018 SYDNEY Wright, [place] 2 11:24:59 Bradycar elaina 46326302 Completed 201905/13/2022 Leyla Roa MD [address], [place], [address], [facility] [place] 3 15:08:52 Hyperten sive disorder 55989627 Completed 202005/13/2022 Leyla Roa MD [address] [facility] [address], [place], [address], [facility] [place] 3 15:08:17 Neuropat hy 574431649 Active 2020 SYDNEY Wright, [place] 2 11:24:59 Hyperten sive renal disease 26060705 Active 2020 Aaliyah Gonsales CPPM null, [place] 2 11:24:58 Anxiety state 813854382 Active 2022 Leyla Roa MD [address], [place], [address], [facility] [place] 3 10:01:58 Insomnia 265670603 Active 2022 Leyla Roa MD [address], [place], [address], [facility] [place] 3 10:02:00 Chronic kidney disease stage 2 405174053 Active 2022 Tiffanie juarez, [place] 3 16:06:07 Triggeri ng of digit 000492658 Active 2024 GUERLINE HEREDIA, [facility] [address], [place], [address], [facility] [place] 5 14:20:04 Notes:Some problems listed i n Documents: #[id number], #[id number], #[id number], #[id number] could not be added to this patient's chart. Please review these documents and add these problems to the patient's chart manually as needed. Problem Notes None recorded. Procedures Surgical History Date Name Laterality Status Provider Name and Address Organization Details Recorded Time 01/15/20 24 Advanced Care Planning completed Leyla Roa MD [address] [address], [place], [address], [facility] [place] 01/15/2024 10:55:40 07/17/19 24 Advanced Care Planning completed Leyla Roa MD [address], [address], [facility] [place] 07/17/2023 08:00:05 10/13/19 23 injection of cortisone completed Bharati lopez [facility] 10/31/2022 13:31:03 07/19/19 23 injection of cortisone completed Bharati lopez [facility] 10/31/2022 13:30:50 05/15/19 23 Advanced Care Planning completed Leyla Roa MD [address], [address], [facility] [place] 05/13/2022 22:28:07 11/25/19 22 FOBT completed Bharati lopez [facility] 11/24/2021 14:49:59 05/13/19 22 Advanced Care Planning completed Bharati lopez [facility] 05/12/2021 10:08:58 05/10/19 21 Six-Item Cognitive Test completed Bharati lopez [facility] 05/09/2020 15:45:08 02/11/20 19 Mini-Cog Test completed Bharati lopez [facility] 02/10/2019 12:53:51 02/08/20 18 Mini-Cog Test completed Bharati lopez [place] 02/07/2018 11:04:14 01/05/20 17 Fall Risk Assessment completed Bharati Antonioivan-Jonah os, [place] 01/04/2017 10:53:40 01/05/20 17 Mini-Cog Test completed Bharati Antonioivan-Jonah john, [place] 01/04/2017 10:55:47 03/21/19 17 Colonoscopy completed Bharati Antonioivan-Jonah os, [place] 01/04/2017 10:51:37 02/25/19 17 Appendectomy completed Bharati Antonioivan-Jonah os, [place] 01/04/2017 10:50:56 12/27/19 16 Fall Risk Assessment completed Bharati Antonioivan-Jonah john, [place] 12/27/2015 13:40:24 12/27/19 16 Mini-Cog Test completed Bharati Antonioivan-Jonah john, [place] 12/27/2015 13:38:01 04/20/19 15 Fall Risk Assessment completed Laverne Salas MA [place] 04/19/2014 10:02:36 04/20/19 15 Mini-Cog Test completed Laverne Salas MA [place] 04/19/2014 10:02:36 Repair of nasal septum completed Bharati Thornton-Jonahkamari lopez [place] 05/09/2020 15:10:42 Cataract Surgery completed Bharati Antonioivan-Jonah john, [place] 05/09/2020 15:10:42 Unlisted px accessory sinus completed Bharati Antonioivan-Jonah john, [place] 05/09/2020 15:10:42 Gingivoplasty each quadrant completed Bharati Antonioivan-Jonah john, [place] 05/09/2020 15:10:42 Ligation/bx temporal artery completed Bharati Antonioivan-Jonah john, [place] 05/09/2020 15:10:42 Removal of nose polyp(s) completed Bharati Thornton-Jonah os, [facility] 05/09/2020 15:10:42 Cataract Surgery completed Bharati Norberto-Jonah , [facility] 12/27/2015 13:46:12 primary repair of inguinal hernia completed Bharatibrijesh Thornton-Jonah os, [facility] 02/07/2018 11:00:27 Imaging Results None recorded. Procedure Notes None recorded. Medical Equipment None Reported. Allergies Allergen ID Allergen Name Allergen Category Reaction Reaction Severity Criticality Documentation Date Start Date Code Code System Note Provider Name and Address Organization Details Recorded Time 47736 Substance with sulfonami de structure and antibacte rial mechanism of action (substanc e) medicatio n hives severe Not available 05/13/2018 74330 8003 SNOMED Not Available [facility] 3 12:18:29 Medications Name Sig Start Date Stop Date Status Note LastModified by Organization Details LastModified Time multivita min tablet Take 1 tablet every day by oral route. active Not Available Not Available No t Available amoxicill in 500 mg capsule 02/07 completed Not Available Not Available Not Available calcium 600 mg capsule Take 1 capsule every day by oral route. 08/26 completed Not Available Not Available Not Available methocarb isabella 500 mg tablet Take 1 tablet po daily at bedtime as needed for 5 days. 05/12 completed Not Available Not Available Not Available carvedilo l 6.25 mg tablet Take 1 tablet twice a day by oral route for 90 days. 07/26 completed Not Available Not Available Not Available propranol ol ER 160 mg capsule,2 4 hr,extend ed release TAKE 1 CAPSULE BY MOUTH EVERY DAY 03/19 completed changed to carvedil ol Not Available Not Available Not Available trazodone 50 mg tablet TAKE 1 TABLET BY MOUTH EVERYDAY AT BEDTIME 11/13 completed Not Available Not Available Not Available ofloxacin 0.3 % eye drops 12/26 completed Not Available Not Available Not Available hydrocodo ne 5 mg-acetam inophen 325 mg tablet Take 1 tablet 3 times a day by oral route for 5 days. 02/07 completed Not Available Not Available Not Available meloxicam 15 mg tablet Take 1 tablet every day by oral route for 30 days. active Not Available Not Available No t Available prednison e 20 mg tablet Take 3 tablets every day by oral route with meals for 5 days. 02/10 completed Not Available Not Available Not Available Viagra 50 mg tablet Take 1 tablet every day by oral route. 02/21 completed Not Available Not Available Not Available prednison e 5 mg tablet PLEASE SEE ATTACHED FOR DETAILED DIRECTIO NS 11/13 completed Not Available Not Available Not Available amlodipin e 2.5 mg-benaze pril 10 mg capsule TAKE 1 CAPSULE BY MOUTH EVERY DAY FOR 90 DAYS 03/28 completed Not Available Not Available Not Available Tylenol Arthritis Pain 650 mg tablet,ex tended release Take 2 tablets every 8 hours by oral route as needed. 11/29 completed Not Available Not Available Not Available butalbita l 50 mg-acetam inophen 325 mg tablet Q8H PRN active RECORDED 03/21/19 11 9:45AM BY RAY RANDHAWA MD, ANNOTATI ON/VIKAS [place];DR HUMBERTO RAI Not Available Not Available Not Available sulfameth oxazole 800 mg-trimet hoprim 160 mg tablet Take 1 tablet every 12 hours by oral route for 42 days. 05/13 completed Not Available Not Available Not Available aspirin 81 mg tablet,de layed release Take 1 tablet every day by oral route. 10/31 completed Hold Not Available Not Available Not Available acetamino phen 500 mg tablet Take 1 tablet every 4-6 hours by oral route as needed. 05/12 completed for headache s Not Available Not Available Not Available triamtere ne 37.5 mg-hydroc hlorothia zide 25 mg capsule QD 03/21 completed RECORDED 03/21/19 11 9:49AM BY RAY RANDHAWA MD, OFFICE VISIT; Not Available Not Available Not Available butalbita l-acetami nophen-ca ffeine 50 mg-325 mg-40 mg tablet TAKE 1 TO 2 TABLETS BY MOUTH EVERY 4 HOURS NEEDED (MAX 6 TABS/DAY ) 11/13 completed Not Available Not Available Not Available ketorolac 0.5 % eye drops Instill 1 drop twice a day by ophthalm ic route for 30 days. 12/26 completed Not Available Not Available Not Available Fluticaso ne Propionat e (Inhal) 50 mcg/BLIST inhl powd EACH NOSTRIL ONCE DAILY 04/15 completed RECORDED 04/15/19 14 9:45AM BY BHARATI SAUER MA, OFFICE VISIT; Not Available Not Available Not Available prednisol one acetate 1 % eye drops,veda pension INSTILL 1 DROP INTO RIGHT EYE 3 TIMES A DAY FOR 5 DAYS FOLLOWIN G LASER 05/08 completed Not Available Not Available Not Available ascorbic acid (vitamin C) 500 mg tablet Take 1 tablet every day by oral route. 05/08 completed Not Available Not Available Not Available tamsulosi n 0.4 mg capsule TAKE 1 CAPSULE BY MOUTH EVERY DAY active Not Available Not Available No t Available amlodipin e 5 mg-benaze pril 10 mg capsule TAKE 1 CAPSULE BY MOUTH EVERY DAY DIRECTED active Not Available Not Available No t Available prednison e 1 mg tablet QD 08/10 completed RECORDED 08/11/19 10 8:27AM BY SB GOODEN/VIKAS [place]; Not Available Not Available Not Available amlodipin e 5 mg-benaze pril 20 mg capsule TAKE 1 CAPSULE BY MOUTH EVERY DAY FOR 90 DAYS 02/23 completed Not Available Not Available Not Available benzonata te 100 mg capsule TAKE 1 CAPSULE 3 TIMES A DAY BY ORAL ROUTE FOR 4 DAYS. 07/16 completed Not Available Not Available Not Available gemfibroz il 600 mg tablet 2 TIMES A DAY 03/21 completed RECORDED 03/21/19 11 9:49AM BY RAY RANDHAWA MD, OFFICE VISIT; Not Available Not Available Not Available simvastat in 20 mg tablet TAKE ONE TABLET BY MOUTH EVERY DAY, IN THE EVENING active Not Available Not Available No t Available erythromy ulysses 5 mg/gram (0.5 %) eye ointment APPLY 1 CM RIBBON INTO THE LOWER CONJUNCT IVAL SAC(S) IN THE AFFECTED EYE(S) BY OPHTHALM IC ROUTE 3 TIMES PER DAY FOR 7 DAYS 07/16 completed Not Available Not Available Not Available mirtazapi ne 30 mg tablet TAKE 1 TABLET BY MOUTH EVERYDAY AT BEDTIME 2024 active Not Available Not Available Not Avai lable fluoromet holone 0.1 % eye drops,veda pension BID 03/26 completed RECORDED 03/26/19 12 9:43AM BY BHARATI SAUER MA, OFFICE VISIT;DR Kim STONE Not Available Not Available Not Available polymyxin B sulfate 10,000 unit-trim ethoprim 1 mg/mL eye drops TO AFFECTED EYE EVERY 4 HOURS 06/23 completed RECORDED 08/30/19 08 9:35AM BY RAY RANDHAWA MD, MEDICATI ON AUTO-SHAQ CTIVATIO N; Not Available Not Available Not Available indometha ulysses 50 mg capsule TID PRN 03/26 completed RECORDED 03/26/19 12 9:42AM BY BHARATI SAUER MA, OFFICE VISIT;DR HERNANDEZ Not Available Not Available Not Available indapamid e 1.25 mg tablet TAKE 1 TABLET BY MOUTH EVERY DAY 11/13 completed Not Available Not Available Not Available butalbita l-aspirin -caffeine 50 mg-325 mg-40 mg capsule Take 2 capsules every 4-6 hours by oral route as needed for migraine . 2013 active Patient pays out-of-p ocket because insuranc e won't cover it Not Available Not Available Not Available gabapenti n 300 mg capsule Take 1-2 pills at bedtime as needed. 2014 active Not Available Not Available Not Avai lable omeprazol e 20 mg capsule,d elayed release TAKE 1 CAPSULE BY MOUTH TWICE A DAY active Not Available Not Available No t Available mirtazapi ne 45 mg tablet TAKE 1 TABLET BY MOUTH EVERYDAY AT BEDTIME 10/12 completed Not Available Not Available Not Available benazepri l 20 mg tablet Take 1 tablet every day by oral route as directed for 30 days. 09/13 completed PER Cardiolo gy Not Available Not Available Not Available mirtazapi ne 15 mg tablet TAKE 1 TABLET BY MOUTH EVERY DAY AT BEDTIME FOR 30 DAYS active Not Available Not Available No t Available gabapenti n 100 mg capsule TAKE 1 CAPSULE BY MOUTH EVERY DAY AT BEDTIME NEEDED active Not Available Not Available No t Available Butalbita l-APAP 50 mg-325 mg tablet Q 4 HOURS PRN 08/10 completed RECORDED 08/11/19 10 8:27AM BY BASSAM MONTANEZ, ANNOTATI ON/RADHALAZARO DUM; Not Available Not Available Not Available ipratropi um bromide 42 mcg (0.06 %) nasal spray [place] 1 spray every day by nasal route as needed for 30 days. 12/26 completed Not Available Not Available Not Available imipramin e 25 mg tablet QHS 03/21 completed RECORDED 03/21/19 11 9:50AM BY RAY RANDHAWA MD, OFFICE VISIT; Not Available Not Available Not Available vitamin E 268 mg (400 unit) capsule Take 1 capsule every day by oral route. 05/08 completed Not Available Not Available Not Available amoxicill in 875 mg-potass ium clavulana te 125 mg tablet 02/07 completed Not Available Not Available Not Available Apap W/Caffein e & Butalbita l 325 mg-40 mg-50 mg tablet QD 09/03 completed RECORDED 09/04/19 07 8:19AM BY RAY RANDHAWA MD, MEDICATI ON AUTO-SHAQ CTIVATIO N;THIS ORDER DISCONTI NUED PER MEDI-SPA N. Not Available Not Available Not Available amlodipin e 10 mg-benaze pril 20 mg capsule TAKE 1 CAPSULE BY MOUTH EVERY DAY active Not Available Not Available No t Available Vitamin D3 25 mcg (1,000 unit) capsule Take 1 capsule every day by oral route. 05/08 completed Not Available Not Available Not Available cyclobenz aprine 5 mg tablet active Not Available Not Available No t Available iron 325 mg (65 mg iron) tablet Take 1 tablet every day by oral route. 05/08 completed Not Available Not Available Not Available Systane (propylen e glycol) 0.4 %-0.3 % eye drops Apply 2 drops every day by ophthalm ic route. 2020 active rare use Not Available Not Available Not Avai lable Levitra 10 mg tablet Take 1 tablet every day by oral route. 02/22 completed Not Available Not Available Not Available Prilosec OTC 20 mg tablet,de layed release QD 08/10 completed RECORDED 08/11/19 10 8:27AM BY SB GOODEN ON/VIKAS [place]; Not Available Not Available Not Available Cialis 10 mg tablet Take 1 tablet every day by oral route as needed. 02/22 completed Not Available Not Available Not Available metoprolo l tartrate 25 mg tablet TAKE 1/2 TABLET BY MOUTH TWICE A DAY 05/12 completed Not Available Not Available Not Available mirtazapi ne 7.5 mg tablet TAKE 1 TABLET BY MOUTH EVERY DAY FOR 30 DAYS active Not Available Not Available No t Available gabapenti n 300 mg tablet AT BEDTIME 03/26 completed RECORDED 03/26/19 12 9:42AM BY BHARATI SAUER MA, OFFICE VISIT;NE URONTIN Not Available Not Available Not Available B Complex 1 tablet po daily 05/08 completed Not Available Not Available Not Available vitamin B complex 1 tablet po daily 05/14 completed Not Available Not Available Not Available Tennis Elbow Support WEAR FOREARM STRAP FOR LATERAL EPICONDY LITIS 05/30 completed RECORDED 06/03/19 08 7:41AM BY RAY RANDHAWA MD, MEDICATI ON AUTO-SHAQ CTIVATIO N; Not Available Not Available Not Available Super B Complex 1 tablet po daily active Not Available Not Available No t Available multivita min 1 TABLET PO DAILY 05/08 completed Not Available Not Available Not Available blood pressure monitor DAILY MONITORI NG OF BP FOR HTN 07/20 completed RECORDED 09/15/19 11 6:16PM BY BHARATI SAUER MA, MEDICATI ON AUTO-SHAQ CTIVATIO N; Not Available Not Available Not Available amlodipin e 5 mg-benaze pril 40 mg capsule Take 1 capsule every day by oral route for 90 days. 11/09 completed Not Available Not Available Not Available amlodipin e 10 mg-benaze pril 40 mg capsule TAKE 1 CAPSULE BY MOUTH EVERY DAY 05/08 completed Not Available Not Available Not Available Zostavax (PF) 19,400 unit/0.65 mL subcutane ous suspensio n RANJITH X 1 12/03 completed RECORDED 12/16/19 13 1:22PM BY GARETT MENDOZA MD, MEDICATI ON AUTO-SHAQ CTIVATIO N; Not Available Not Available Not Available carvedilo l phosphate ER 20 mg capsule,e xt.releas e24hr multiphas e Take 1 capsule every day by oral route for 90 days. 03/23 completed Not Available Not Available Not Available peg 3350-elec trolytes 236 gram-22.7 4 gram-6.74 gram-5.86 gram solution 01/04 completed Not Available Not Available Not Available tadalafil 2.5 mg tablet TAKE 1 TABLET BY MOUTH EVERY DAY active Not Available Not Available No t Available PreserVis ion AREDS-2 250 mg-90 mg-40 mg-1 mg capsule Take 1 tablet twice a day by oral route as directed . 2022 active Not Available Not Available Not Avai lable melatonin ER 10 mg tablet,ex tended release Take 1 tablet every day by oral route at bedtime. active Not Available Not Available No t Available Shingrix (PF) 50 mcg/0.5 mL intramusc ular suspensio n, kit 12/07 completed Not Available Not Available Not Available Adults' Daily Formula 18 mg iron-25 mcg tablet Take 1 tablet 3 times a week by oral route. 05/14 completed Not Available Not Available Not Available melatonin 12 mg tablet Take 1 tablet every day by oral route at bedtime. 10/31 completed Not Available Not Available Not Available Paxlovid 300 mg (150 mg x 2)-100 mg tablets in a dose pack TAKE 3 TABLETS BY MOUTH TWICE A DAY DIRECTED FOR 5 DAYS 01/14 completed Not Available Not Available Not Available Vitals Date Recorded Heart rate Systolic And Diastolic Provider Name and Address Organization Details Last Updated DateTime 02/24/2024 63 /min 131/63 mm[Hg] Not Available [facility] 02/24/2024 10:08:07 Date Recorded Heart rate Systolic And Diastolic Provider Name and Address Organization Details Last Updated DateTime 03/07/2024 64 /min 138/81 mm[Hg] Not Available [facility] 03/07/2024 09:49:04 Date Recorded Heart rate Systolic And Diastolic Provider Name and Address Organization Details Last Updated DateTime 03/25/2024 64 /min 129/84 mm[Hg] Not Available [facility] 03/25/2024 09:37:06 Date Recorded Heart rate Systolic And Diastolic Provider Name and Address Organization Details Last Updated DateTime 04/06/2024 66 /min 140/64 mm[Hg] Not Available [facility] 04/06/2024 10:02:09 Date Recorded Heart rate Systolic And Diastolic Provider Name and Address Organization Details Last Updated DateTime 04/24/2024 62 /min 124/75 mm[Hg] Not Available [facility] 04/24/2024 16:07:04 Date Recorded Heart rate Systolic And Diastolic Provider Name and Address Organization Details Last Updated DateTime 05/21/2024 62 /min 132/60 mm[Hg] Not Available [facility] 05/21/2024 09:39:35 Date Recorded Heart rate Systolic And Diastolic Provider Name and Address Organization Details Last Updated DateTime 06/17/2024 65 /min 138/64 mm[Hg] Not Available [facility] 06/17/2024 08:39:36 Date Recorded Body height Body mass index (BMI) Body weight Heart rate Oxygen saturation Oxygen saturation in Arterial blood by Pulse oximetry Body temperature Systolic And Diastolic Provider Name and Address Organization Details Last Updated DateTime 162.56 cm 23.9 kg/m2 54248.1 4 g 69 /min 98 % 98 % 98.4 [degF] 154/72 mm[Hg] Estela Jones [facility] 10:06:25 Date Recorded Heart rate Systolic And Diastolic Provider Name and Address Organization Details Last Updated DateTime 07/07/2024 69 /min 142/61 mm[Hg] Not Available [facility] 07/07/2024 12:23:36 Date Recorded Heart rate Systolic And Diastolic Provider Name and Address Organization Details Last Updated DateTime 07/28/2024 66 /min 137/63 mm[Hg] Not Available [facility] 07/28/2024 09:41:37 Date Recorded Heart rate Systolic And Diastolic Provider Name and Address Organization Details Last Updated DateTime 08/06/2024 70 /min 144/66 mm[Hg] Not Available [facility] 08/06/2024 09:41:37 Date Recorded Heart rate Systolic And Diastolic Provider Name and Address Organization Details Last Updated DateTime 08/07/2024 75 /min 127/77 mm[Hg] Not Available [facility] 09/01/2024 13:41:34 Date Recorded Heart rate Systolic And Diastolic Provider Name and Address Organization Details Last Updated DateTime 08/24/2024 65 /min 134/85 mm[Hg] Not Available [facility] 09/01/2024 13:41:36 Date Recorded Heart rate Systolic And Diastolic Provider Name and Address Organization Details Last Updated DateTime 08/26/2024 67 /min 125/79 mm[Hg] Not Available [facility] 09/01/2024 13:41:36 Date Recorded Body height Body mass index (BMI) Body weight Heart rate Oxygen saturation Oxygen saturation in Arterial blood by Pulse oximetry Heart rate Body temperature Systolic And Diastolic Systolic And Diastolic Provider Name and Address Organization Details Last Updated DateTime 162.56 cm 23.3 kg/m2 71728.5 6 g 64 /min 98 % 98 % 67 /min 98.4 [degF] 128/66 mm[Hg] 128/60 mm[Hg] Bharati knox [facility] [place] 13:42:45 Date Recorded Heart rate Heart rate Systolic And Diastolic Systolic And Diastolic Provider Name and Address Organization Details Last Updated DateTime 09/01/2024 67 /min 66 /min 139/57 mm[Hg] 128/66 mm[Hg] Not Available [facility] 09/01/2024 13:46:34 Date Recorded Heart rate Systolic And Diastolic Provider Name and Address Organization Details Last Updated DateTime 09/10/2024 61 /min 125/78 mm[Hg] Not Available [facility] 09/10/2024 09:30:27 Date Recorded Heart rate Systolic And Diastolic Provider Name and Address Organization Details Last Updated DateTime 09/17/2024 63 /min 115/76 mm[Hg] Not Available [facility] 09/17/2024 10:16:31 Date Recorded Body height Provider Name an d Address Organization Details Last Updated DateTime 09/19/2023 162.56 cm Aaliyah francis, [facility] [place] 09/19/2023 15:20:20 Date Recorded Heart rate Systolic And Diastolic Provider Name and Address Organization Details Last Updated DateTime 10/01/2023 75 /min 131/69 mm[Hg] Not Available [facility] 10/01/2023 08:50:04 Date Recorded Heart rate Systolic And Diastolic Provider Name and Address Organization Details Last Updated DateTime 09/30/2024 59 /min 122/83 mm[Hg] Not Available [facility] 09/30/2024 09:54:28 Date Recorded Heart rate Systolic And Diastolic Provider Name and Address Organization Details Last Updated DateTime 10/17/2023 64 /min 120/73 mm[Hg] Not Available [facility] 10/17/2023 12:01:06 Date Recorded Body height Body mass index (BMI) Body weight Heart rate Oxygen saturation Oxygen saturation in Arterial blood by Pulse oximetry Body temperature Systolic And Diastolic Provider Name and Address Organization Details Last Updated DateTime 162.56 cm 23.5 kg/m2 59878.1 5 g 62 /min 99 % 99 % 98 [degF] 120/56 mm[Hg] Bharati knox MA [place] 13:58:08 Date Recorded Heart rate Systolic And Diastolic Provider Name and Address Organization Details Last Updated DateTime 10/31/2024 61 /min 137/83 mm[Hg] Not Available [facility] 10/31/2024 15:40:26 Date Recorded Heart rate Systolic And Diastolic Provider Name and Address Organization Details Last Updated DateTime 11/09/2023 59 /min 138/84 mm[Hg] Not Available [facility] 11/09/2023 08:11:02 Date Recorded Heart rate Systolic And Diastolic Provider Name and Address Organization Details Last Updated DateTime 11/18/2023 64 /min 121/76 mm[Hg] Not Available [facility] 11/18/2023 23:39:02 Date Recorded Heart rate Systolic And Diastolic Provider Name and Address Organization Details Last Updated DateTime 11/21/2024 62 /min 140/63 mm[Hg] Not Available [facility] 11/21/2024 10:04:32 Date Recorded Heart rate Systolic And Diastolic Provider Name and Address Organization Details Last Updated DateTime 12/03/2023 64 /min 135/88 mm[Hg] Not Available [facility] 12/03/2023 22:15:02 Date Recorded Heart rate Systolic And Diastolic Provider Name and Address Organization Details Last Updated DateTime 12/17/2024 58 /min 133/81 mm[Hg] Not Available [facility] 12/17/2024 09:50:28 Date Recorded Heart rate Systolic And Diastolic Provider Name and Address Organization Details Last Updated DateTime 12/27/2023 58 /min 132/81 mm[Hg] Not Available [facility] 12/27/2023 15:53:04 Date Recorded Heart rate Systolic And Diastolic Provider Name and Address Organization Details Last Updated DateTime 12/28/2024 65 /min 152/92 mm[Hg] Not Available [facility] 12/28/2024 22:40:28 Date Recorded Body height Body mass index (BMI) Body weight Oxygen saturation Oxygen saturation in Arterial blood by Pulse oximetry Heart rate Body temperature Systolic And Diastolic Provider Name and Address Organization Details Last Updated DateTime 162.56 cm 23.6 kg/m2 93552.5 5 g 99 % 99 % 66 /min 98 [degF] 127/62 mm[Hg] Sandee Melara MA [place] 10:27:56 Date Recorded Heart rate Heart rate Systolic And Diastolic Systolic And Diastolic Provider Name and Address Organization Details Last Updated DateTime 01/22/2024 64 /min 61 /min 143/66 mm[Hg] 133/89 mm[Hg] Not Available [facility] 01/22/2024 10:34:05 Date Recorded Heart rate Systolic And Diastolic Provider Name and Address Organization Details Last Updated DateTime 02/15/2024 65 /min 141/64 mm[Hg] Not Available [facility] 02/15/2024 09:51:08 Social History Question Answer Notes LastModified by Organizat ion Details LastModified Time Tobacco Smoking Status [facility] 09:57:25 Do You Have An Advance Directive? Yes HCP Information not available 12/18/2021 Is Blood Transfusion Acceptable In An Emergency? Yes Information not available 10/20/2014 What Is Your Level Of Caffeine Consumption? Occasional Information not available 05/09/2020 How Much Tobacco Do You Chew? None Information not available 10/20/2014 What Type Of Diet Are You Following? REGULAR Information not available 09/29/2013 Which Illicit Or Recreational Drugs Have You Used? None Information not available 09/29/2013 Live Alone Or With Others? Alone [email or web address] Information not available 12/18/2021 Do You Take Precautions To Prevent Distracted Driving? Yes Information not available 10/20/2014 How Often Do You Need To Have Someone Help You When You Read Instructions, Pamphlets, Or Other Written Material From Your Doctor Or Pharmacy? Never Information not available 10/20/2014 Have You Served In The ? Yes Information not available 01/04/2017 Have You Or Anyone In Your Household Had Any Of The Following Symptoms In The Last 14 Days: Sore Throat, Cough, Chills, Body Aches For Unknown Reasons, Shortness Of Breath For Unknown Reasons, Loss Of Smell, Loss Of Taste, Fever At Or Greater Than 100 Degrees Fahrenheit? No [email or web address] Information not available 09/14/2019 Are You Or Anyone In Your Household A Health Care Provider Or Emergency Responder? No [email or web address] Information not available 09/14/2019 To The Best Of Your Knowledge Have You Been In Close Proximity To Any Individual Who Tested Positive For COVID-19? No [email or web address] Information not available 09/14/2019 *AWV ONLY* Are You Presently Prescribed Opioid Medication By PCP Or Specialist? If YES -Provider Assess The Benefit For Other, Non-opioid Pain Therapies Instead, Even If The Patient Does Not Have OUD But Is Possibly At Risk. No Information not available 05/09/2020 Have You Recently Traveled To A COVID-19 High Risk Area Or Gathering In The Last 10 Days? No Information not available 05/09/2020 What Was The Date Of Your Most Recent Tobacco Screening? 10/21/2024 Information not available 10/21/2024 How Many Children Do You Have? 0 Information not available 05/12/2021 Do You Use Protection During Sex? Always Information not available 05/09/2020 Do You Use Your Seat Belt Or Car Seat Routinely? Yes Information not available 05/12/2021 Seat Belts Used Routinely Yes Information not available 12/18/2021 Are You Sexually Active? Yes Girlfriend Information not available 09/01/2024 Smoke Alarm In Home Yes [email or web address] Information not available 12/18/2021 Do You Have Smoke And Carbon Monoxide Detectors In Your Home? Yes Information not available 05/12/2021 At What Age Did You Start Smoking Tobacco? 0 Information not available 10/20/2014 Are You Passively Exposed To Smoke? No Information not available 10/20/2014 How Much Tobacco Do You Smoke? No Information not available 09/29/2013 Do You Use Sunscreen Routinely? No Information not available 10/20/2014 How Many Years Have You Smoked Tobacco? 0 Information not available 10/20/2014 Sex: Unknown Functional Status Question Answer Note LastModified by LABOMARat ion Details LastModified Time Do you use any illicit or recreational drugs? No [email or web address] Information not available 12/18/2021 Do you or have you ever used any other forms of tobacco or nicotine? No [email or web address] Information not available 12/18/2021 What is your level of alcohol consumption? Occasional 3 drinks per year, wine Information not available 09/29/2013 Do you or have you ever used smokeless tobacco? Never used smokeless tobacco Information not available 02/10/2019 Are you currently employed? No retired Information not available 09/29/2013 Are you able to walk independently without assistance or assistive devices? YESWOREST [email or web address] Information not available 12/18/2021 Are you able to care for yourself independently? 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 Never used electronic cigarettes Information not available 12/18/2021 What is your exercise level? None Information not available 10/20/2014 Mental Status None recorded. Family History Relationship Description Onset Age of this Age Resolved Age Notes LastModified by Organization Details LastModified Time Mother Osteoporosis [email or web address] Not availab le 05/18/2015 11:21:10 Mother Carcinoma of breast [email or web address] Not available 12/18 09:15:13 Father Hypothyroidi sm [email or web address] Not available 12/18 09:15:13 Father Essential hypertension [email or web address] Not available 09:15:14 Sister Asthma [email or web address] Not available 14:36:32 Sister Essential hypertension [email or web address] Not available 09:15:14 Sister Cerebrovascu lar accident [email or web address] Not available 14:36:32 Medical History Condition Response Arthritis Y Acid Reflux (GERD) Y Allergies Y Headaches/Migraines Y Bladder Problems Y Hypertension Y Immunizations Vaccine Type Date Status Note Provider Nam e and Address Organization Details Recorded Time Influenza, split virus, trivalent, PF 4 completed Jennyfer juarez [place] 07/30/2019 09:05:33 Influenza, split virus, trivalent, PF 5 completed Jennyfer juarez [place] 07/30/2019 09:05:33 Influenza, high-dose, trivalent, PF 8 completed VASILE Hanson [place] 11/13/2021 09:55:16 Influenza, high-dose, trivalent, PF 9 completed VASIEL Hanson [place] 11/13/2021 09:55:16 Influenza, adjuvanted, quadrivalent, PF 0 completed Jennyfer juarez [place] 01/24/2021 15:30:44 COVID-19, mRNA, LNP-S, PF, 30 mcg/0.3 mL dose 1 completed VASILE Hanson, [place] 11/13/2021 09:55:15 COVID-19, mRNA, LNP-S, PF, 30 mcg/0.3 mL dose 1 completed Bharati Payan MA null, [place] 11/13/2021 09:55:16 COVID-19, mRNA, LNP-S, PF, 30 mcg/0.3 mL dose 1 completed VASILE Hanson, [place] 11/13/2021 09:55:15 zoster recombinant 0 completed VASILE Hanson, [place] 11/13/2021 09:55:15 Influenza, high-dose, quadrivalent, PF 1 completed VASILE Hanson, [place] 11/13/2021 09:55:15 zoster recombinant 0 completed Bharati Payan MA null, [place] 11/13/2021 09:55:16 Influenza, split virus, quadrivalent, PF 0 completed VASILE Hanson, [place] 11/13/2021 09:55:16 Influenza, high-dose, trivalent, PF 6 completed VASILE Hanson, [place] 11/13/2021 09:55:16 Influenza, split virus, trivalent, preservative 7 completed Jennyfer Garberlisa juarez, [place] 07/30/2019 09:05:33 Influenza, split virus, trivalent, preservative 8 completed Jennyfer Garber larry, [place] 07/30/2019 09:05:33 Novel [id number], all formulations 0 completed Jennyfer Garberlisa juarez, [place] 07/30/2019 09:05:33 Influenza, split virus, trivalent, preservative 0 completed Jennyfer juarez [place] 07/30/2019 09:05:33 Influenza, split virus, trivalent, preservative 2 completed Jennyfer juarez, [place] 07/30/2019 09:05:33 zoster live 3 completed VASILE Hanson, [place] 11/13/2021 09:55:15 Influenza, split virus, trivalent, preservative 3 completed VASILE Hanson, [place] 11/13/2021 09:55:16 COVID-19, mRNA, LNP-S, PF, 30 mcg/0.3 mL dose, alison-sucrose 2 completed VASILE Hanson [place] 11/13/2021 09:55:16 Td (adult), 2 Lf tetanus toxoid, preservative free, adsorbed 8 completed VASILE Hanson, [place] 11/13/2021 10:09:34 Influenza, high-dose, quadrivalent, PF 2 completed VASILE Hanson [place] 11/13/2021 10:09:34 Influenza, high-dose, trivalent, PF 7 completed VASILE Hanson, [place] 11/13/2021 10:09:34 pneumococcal polysaccharide PPV23 6 completed VASILE Hanson, [place] 11/13/2021 10:09:34 Pneumococcal conjugate PCV 13 5 completed VASILE Hanson [place] 11/13/2021 10:09:35 Influenza, high-dose, trivalent, PF 6 completed VASILE Hanson, [place] 11/29/2021 10:21:06 COVID-19, mRNA, LNP-S, bivalent, PF, 30 mcg/0.3 mL dose 2 completed VASILE Hanson, [place] 02/23/2022 09:31:29 RSV, recombinant, protein subunit RSVpreF, adjuvant reconstituted, 0.5 mL, PF 3 completed VASILE Hanson, [place] 04/19/2023 11:13:29 COVID-19, mRNA, LNP-S, PF, alison-sucrose, 30 mcg/0.3 mL 3 completed VASILE Hanson, [place] 04/19/2023 11:13:29 Influenza, high-dose, trivalent, PF 4 completed VASILE Ledezma, [place] 01/15/2024 10:22:21 COVID-19, mRNA, LNP-S, PF, alison-sucrose, 30 mcg/0.3 mL 4 completed Not Available [facility] 10/21/2024 13:47:57 Influenza, high-dose, quadrivalent, PF 3 completed Leyla Roa MD [address], [address], [facility] 10/31/2022 14:40:27 Past Encounters Encounter ID Performer Location Encounter Start Date Encounter Closed Date Diagnosis/Indication Diagnosis SNOMED-CT Code Diagnosis ICD10 Code Diagnosis IMO Codes Diagnosis Note [id number] [facility] [facility] [address] [facility] [place] [address] 05/30/2005 00:00:00 [id number] auto[employer]Comm erce [address] [facility] [address] [place] [address] 08/23/2005 00:00:00 [id number] auto[employer] erce [address] [facility] [address] [place] [address] 03/05/2006 00:00:00 [id number] [address] [address] [place] [address] 06/03/2006 00:00:00 [id number] autoEComm erce [address] [facility] [address] [place] [address] 09/03/2006 00:00:00 [id number] auto[employer]Comm erce [address] [place] [address] 12/10/2006 00:00:00 [id number] auto[employer]Comm erce [address] [facility] [address] [place] [address] 2007 00:00:00 [id number] autoEComm erce [address] [facility] [place] [address] 06/03/2007 00:00:00 [id number] autoEComm erce [address] [facility] [place] [address] 06/17/2007 00:00:00 [id number] autoEComm erce [address] [facility] [place] [address] 12/11/2007 00:00:00 [id number] autoEComm erce [address] [facility] [place] [address] 03/18/2008 00:00:00 [id number] autoEComm erce [address] [facility] [place] [address] 06/15/2008 00:00:00 [id number] autoEComm erce [address] [facility] [place] [address] 09/14/2008 00:00:00 [id number] autoEComm erce [address] [facility] [place] [address] 03/17/2009 00:00:00 [id number] autoEComm erce [address] [facility] [place] [address] 07/21/2009 00:00:00 [id number] [employer] [facility] [address] [place] [address] 07/25/2009 00:00:00 [id number] [employer] [address] [place] [address] 09/13/2009 00:00:00 [id number] [employer] [address] [facility],[address] [place] [address] 03/21/2010 00:00:00 [id number] [employer] [address] [facility],[address] [place] [address] 09/18/2010 00:00:00 [id number] [employer] [address] [facility],[address] [place] [address] 03/26/2011 00:00:00 [id number] [employer] [address] [facility],[address] [place] [address] 07/10/2011 00:00:00 [id number] [employer] [address] [facility],[address] [place] [address] 09/26/2011 00:00:00 [id number] [employer] [address] [facility],[address] [place] [address] 03/31/2012 00:00:00 [id number] [employer] [address] [facility],[address] [place] [address] 09/29/2012 00:00:00 [id number] [employer] [address] [facility],[address] [place] [address] 04/15/2013 00:00:00 [id number] Ray Randhawa MD Main Office [address] [place] [address] 09/29/2013 09:40:45 09/29/2013 10:40:31 Essential hypertension 13224178 Hyperlipidemia 65467760 Fatigue 79974801 Idiopathic peripheral neuropathy 79980639 [id number] Garett jones MD Main Office [address] [place] [address] 02/16/2014 11:09:13 02/16/2014 11:47:37 Cervical radiculopathy 81113059 [id number] Ray Randhawa MD Main Office [address] [address] [place] [address] 02/23/2014 10:27:48 02/23/2014 11:42:52 Cervical radiculopathy 85201422 [id number] Ray Randhawa MD Main Office [address] [address] [place] [address] 04/19/2014 09:44:33 04/19/2014 10:51:56 Adult health examination 373558730 Essential hypertension 23361094 Gastroesop hageal reflux disease 579518051 Cervical radiculopathy 24481315 Idiopathic peripheral neuropathy 64029561 Migraine 94155426 Obstructiv e sleep apnea syndrome 39577648 Refuses CPAP Administra tion of pneumococcal vaccine 49308517 [id number] Ray Randhawa MD Main Office [address] [address] [place] [address] 10/20/2014 09:37:08 10/20/2014 10:43:38 Essential hypertension 19010541 Cervical radiculopathy 91109530 Fatigue 26717251 Hyperlipidemia 95296721 [id number] Samantha Ferguson PA-C Main Office [address] [address] [place] [address] 02/08/2015 09:52:01 02/08/2015 11:10:54 Pre-surgery evaluation 774826137 Z01.818 Based on history and physical examinatio n pt. has above average risk for the procedure. Forms and med list will be faxed to the surgeon. Cataract 446637931 H25.0 13 H25.011 [id number] Ray Randhawa MD Main Office [address] [address] [place] [address] 04/27/2015 09:22:12 04/27/2015 10:21:21 Essential hypertension 90437837 I10 Cervical radiculopathy 54737392 M54.12 Migraine 59575478 G43.90 9 [id number] Ray Randhawa MD Main Office [address] [address] [place] [address] 05/18/2015 11:10:24 05/18/2015 12:08:23 Epiretinal membrane 152458118 H35.379 Pre-surger y evaluation 274804260 Z01.818 [id number] Ray Randhawa MD Main Office [address] [address] 12/27/2015 13:26:59 12/27/2015 14:44:55 Adult health examination 185206644 Z00.00 Screening for malignant neoplasm of colon 523109232 Z12.11 Anemia due to unknown mechanism 83744599 D64.9 Administra tion of pneumococcal vaccine 62816524 Z23 Essential hypertension 97913521 I10 Allergic rhinitis 167950 04 J30.9 Hyperlipidemia 75927649 E78.5 Idiopathic peripheral neuropathy 39176876 G60.9 [id number] Ray Randhawa MD Main Office [address] [address] 02/28/2016 08:34:32 02/29/2016 12:32:55 [id number] Ray Randhawa MD Main Office [address] [address] 01/04/2017 10:17:43 01/04/2017 11:36:58 Adult health examination 003505957 Z00.00 Hypercholesterolemia 136 22742 E78.00 Essential hypertension 80771434 I10 Influenza vaccine needed 8361944965 106 Z23 Idiopathic peripheral neuropathy 57066329 G60.9 Gastroesop hageal reflux disease 985757123 K21.9 stable on PPI Glaucoma 54752208 H40.9 Adherent to follow up with ophtho Benign pro static hyperplasia 267067338 N40.0 No meds Migraine 41558661 G43.90 9 Stable with intermitte nt use of butalbital . Obstructiv e sleep apnea syndrome 75623962 G47.33 Refuses CPAP [id number] Ray Randhawa MD Main Office [address] [address] 02/07/2018 10:25:05 02/07/2018 11:59:04 Essential hypertension 81328218 I10 Stable on beta bulmaro for Headache and BP Adult heal th examination 138043725 Z00.00 Hypercholesterolemia 136 16492 E78.00 Hyperlipidemia 34512125 E78.5 Requires a tetanus booster 612733255 Z23 Idiopathic peripheral neuropathy 16517885 G60.9 Negative workup. Gastroesop hageal reflux disease 504974851 K21.9 stable on PPI Benign pro static hyperplasia 868361627 N40.0 No meds Obstructiv e sleep apnea syndrome 17583956 G47.33 Refuses CPAP Primary er ectile dysfunction 104385525 N52.9 Inflammati on of sacroiliac joint 02186081 M46.1 [id number] Willie Eugene MD Main Office [address] [facility] [address] [place] [address] 04/14/2018 13:37:57 04/14/2018 15:12:57 Dysuria 94160941 R30.0 urine dipstick fairly stable, will await formal c&s results before give abx - suspect bph > uti/prosta titis Benign pro static hyperplasia with outflow obstruction 526029003 N40.1 believe his symptoms are d/t bph - will empiricall y give trial of flomax and set up c uro eval - pt states he had uro eval remotely > 10 yrs ago Primary er ectile dysfunction 655415719 N52.9 will have staff print most recent script for Viagra -- encouraged pt to try GoodRx [id number] Willie Eugene MD Main Office [address] [address] 2018 14:44:58 2018 16:17:20 Prostatitis 7918068 N41.9 cont abx and flomax as dir, rec add probiotics , pending see uro 4.26, encouraged pt to call & get on cx list Seasonal allergy 6888193 04 J30.2 cont allergy shots q month Eruption 751732379 R21 not itchy - ? dry skin dermatitis vs side effect of new med Headache 88679452 R51 mild, better lately, enc pt to stay hydrated Essential hypertension 01265443 I10 bp stable, cont meds as dir [id number] Willie Eugene MD Main Office [address] [facility] [address] [place] [address] 05/13/2018 14:38:52 05/13/2018 16:05:26 Prostatitis 7462429 N41.9 off abx and flomax x 3 days -- has used for ~ past month, urination is sig. improved, pending see uro 4.26, encouraged pt to call & get on cx list if difficulti es urinating return ac see uro, then consider resuming flomax Seasonal allergy 0401181 04 J30.2 cont allergy shots q month Eruption 964545197 R21 sxs likely d/t SE of bactrim - added to allergy list - will give pred pulse, hopefully will not need as much benadryl when feeling better cont ppi as dir [id number] Willie Eugene MD Main Office [address] [facility] [address] [facility] [place] [address] 09/08/2018 09:03:01 09/08/2018 10:01:34 Essential hypertension 39092929 I10 bp stable, cont med as dir [id number] Ray Randhawa MD Main Office [address] [facility] 207 [facility] [address] 02/10/2019 12:35:19 02/10/2019 13:43:06 Adult health examination 402645702 Z00.00 Essential hypertension 67413595 I10 Stable on beta bulmaro for Headache and BP Hypercholesterolemia 136 33401 E78.00 Inflammati on of sacroiliac joint 70994201 M46.1 Gastroesop hageal reflux disease 171061244 K21.9 stable on PPI Glaucoma 64315810 H40.9 Adherent to follow up with ophtho Idiopathic peripheral neuropathy 14536923 G60.9 Negative workup. Migraine 41294682 G43.90 9 Stable with intermitte nt use of butalbital . Obstructiv e sleep apnea syndrome 43170929 G47.33 Refuses CPAP Benign pro static hyperplasia 333753584 N40.0 No meds Hyperlipidemia 03973859 E78.5 Fatigue 34920898 R53.83 Benign pro static hyperplasia with outflow obstruction 821788992 N40.1 Left-sided piriformis syndrome 4190820453 35764 M54.32 Osteoarthr osis of the carpometacarpal joint of the thumb 03064631 M18.0 Mild symptoms [id number] Willie Eugene MD Tele[facility] [address] [facility] 207 [facility] [place] [address] 07/23/2019 06:31:08 07/23/2019 13:28:53 Essential hypertension 59906096 I10 bp's variable - likely d/t above bradycardi a/arrhythm ia, cont med as dir for now - see above Lightheadedness 36025959 8 R42 as per hx sounds like lightheade dness is d/t bradycardi a - see below Bradycardia 34091301 R00 .1 his HR ranges from 30s-60s -- he needs to get seen by provider tomorrow - likely needs ekg, ? holter and/or card eval [id number] Uyen ortiz MD Main Office [address] [place] [address] 07/24/2019 09:46:41 07/24/2019 10:36:08 Chest pain 52106011 R07.9 one week of intermitta nt substernal chest pressure, in office with 3/10 chest pressure, not sob in office. pt with a few months of progressiv e ESPINOZA, now with minor tasks around house gets SOB, no cardiac hx of workup in past. EKG with out any acute changes. pt was given 325mg asa in office, to ER by ambulance for cardiac eval, stress testing. history very concerning for unstable angina Dyspnea on exertion 6084 5006 R06.09 worsening over a few months, minimal exertion causing dyspnea to ER for cardiac rule out and evaluation [id number] Ray Randhawa MD Main Office [address] [place] [address] 07/27/2019 14:22:04 07/28/2019 08:48:19 Essential hypertension 41282826 I10 Stable on beta bulmaro for Headache and BP [id number] Ray Randhawa MD Main Office [address] [place] [address] 08/03/2019 10:35:18 08/03/2019 11:29:38 Essential hypertension 24758293 I10 REcent changes in meds for Headache and BP Gastroesop hageal reflux disease 722765031 K21.9 stable on PPI [id number] Ray Randhawa MD Main Office [address] [facility] [address] [place] [address] 05/09/2020 14:35:51 05/09/2020 16:27:09 Adult health examination 174824815 Z00.00 Essential hypertension 69730435 I10 REcent changes in meds for Headache and BP Hypercholesterolemia 136 42206 E78.00 Benign pro static hyperplasia 479699989 N40.0 No meds Gastroesop hageal reflux disease 864521204 K21.9 stable on PPI Glaucoma 16425308 H40.9 Adherent to follow up with ophtho Idiopathic peripheral neuropathy 07477712 G60.9 Negative workup. Migraine 05378908 G43.90 9 Stable with intermitte nt use of butalbital . Obstructiv e sleep apnea syndrome 98013942 G47.33 Refuses CPAP Hyperlipidemia 71241038 E78.5 Fatigue 27617305 R53.83 Benign pro static hyperplasia with outflow obstruction 827751731 N40.1 Osteoarthr osis of the carpometacarpal joint of the thumb 28737819 M18.0 Mild symptoms Neuropathy 317257251 G62 .9 [id number] Leyla Roa MD Main Office [address] [facility] [address] [facility] [place] [address] 01/24/2021 10:11:46 01/24/2021 11:25:21 Chronic kidney disease stage 3 879001775 N18.30 Neck pain 71876942 M54.2 declined pt open to self exercise.S uspected muscle spasm, advised self exercises, warm compress and short course of MSK relaxant.P t aware to avoid operating motor vehicle or machinery while taking medication and to avoid etoh due to riks of sedation. Hypertensi ve renal disease 84368783 I12.9 Low sodium diet discussedC ounseled on medication adherence - will continue current regimen as BP well controlled .Counseled on diet/exerc ise [id number] Leyla Roa MD Main Office [address] [facility] [address] [facility] [place] [address] 05/12/2021 09:56:28 05/12/2021 11:00:56 Adult health examination 898991613 Z00.00 Patient was counseled on healthy diet, exercise and nutrition due to Body mass index is 22.1 kg/m . Last PSADate: 03/24/20Resu lt: 1.1Plan: on tamsulosin will repeat annually. Last Colonoscop y:Date: 03/21/16Resu lt: no polypsPlan : past age for screening. Vaccines:T d:02/07/18 Zoster: 11/16/2019, 01/16/2020 PCV13: 04/19/14PPSV 23: 12/27/15Inf luenza: 12/01/20Co vid: 03/27/20, 04/15/20, 11/18/20 Routine labs today, with STI workup Immunizati on status reviewed. Will screen based on risk factors. Regular dental and ophtho care advised as well as seat belt and sunscreen use. Distracted driving discussed. Medication reconciled . Advance directives discussed. Chronic ki dney disease stage 3 783940124 N18.31 Hypertensi ve renal disease 25610239 I12.9 Low sodium diet discussedC ounseled on medication adherence - will continue current regimen as BP well controlled .Counseled on diet/exerc iseBp little soft tells me higher at home he will check and let me know if still soft we will adjust meds. Urinary tr act obstruction 5959772 N13.9 Fatigue 90078832 R53.83 Hyperlipidemia 96150130 E78.5 Advance di rective discussed with patient 104753138 Z71.89 MOLST and HCP discussed [id number] Brien Cox MD Telehealt h [address] [facility] [address] [place] [address] 06/29/2021 08:46:42 06/30/2021 09:17:09 COVID-19 804455085 U07.1 He will call if his symptoms worsen. He does not have renal disease. [id number] Leyla Roa MD Main Office [address] [place] [address] 11/13/2021 09:44:23 11/13/2021 10:59:29 Anemia due to unknown mechanism 67041312 D64.9 Hypertensi ve renal disease 78528227 I12.9 Low sodium diet discussedC ounseled on medication adherence - will continue current regimen as BP well controlled on softer side, will stop indapimide .Counseled on diet/exerc iseBp little soft tells me higher at home he will check and let me know if still soft we will adjust meds. Bradycardia 67355878 R00 .1 Unintentio nal weight loss 508696125 R63.4 Insomnia G47.0 0 Anxiety state 896124715 F41.1 Anxiety related to sister, Denies homocidal or suicidal ideation.D eclines therapist. Given wt loss and sleep issues with anxiety will stop trazadone start remeron, follow up in 1mo. Migraine 79962546 G43.90 9 Advised to stop fioricet due to age.Will see how he does off, told if needed can do tylenol. Chronic ki dney disease stage 3A 628027752 N18.31 [id number] Leyla Roa MD Main Office [address] [place] [address] 11/24/2021 08:47:43 11/24/2021 08:48:21 [id number] Leyla Roa MD Main Office [address] [place] [address] 11/29/2021 10:18:34 11/29/2021 11:00:15 Neck pain 97641036 M54.2 chronic related to degenerati on.decline d pt open to self exercise.S uspected muscle spasm, advised self exercises, warm compress.D eclines medication or PT. Pain of ri ght knee joint 2735781194 47231 M25.561 Suspected DJD, exam unremarkab le. Conservati ve therapy was discussed, he would like to stick with over-the-c ounter Tylenol for now. We will get an x-ray given his age. Insomnia G47.0 0 [id number] Leyla Roa MD Main Office [address] [place] [address] 12/18/2021 09:15:00 12/18/2021 10:04:26 Anemia due to unknown mechanism 83132453 D64.9 Will repeat. Hypertensi ve renal disease 83406192 I12.9 Low sodium diet discussedB p still soft after stopping indapamide , will drop CCB/BRENDAN combo to 07/07.Couns eled on diet/exerc iseWill follow up bp in 1mo, KATT Marks will also follow up home bp. Insomnia G47.0 0 Better with Remeron, advised to augment with melatonin. Anxiety state 899336962 F41.1 Anxiety related to sister, Denies homicidal or suicidal ideation.D eclines therapist. Given wt loss and sleep issues with anxiety will stop trazadone start remeron, follow up in 1mo.After starting remeron he has gained 2 lbs.Some improvemen t with remeron, will increase to 30mg. Migraine 60219535 G43.90 9 Advised to stop fioricet due to age. Notes headaches have improved/ Acquired thrombocytopenia 14945248 D69.6 Chronic ki dney disease stage 3 438789492 N18.31 [id number] Leyla Roa MD Main Office [address] [facility] [place] [address] 02/23/2022 09:18:42 02/23/2022 10:02:25 Hypertensive renal disease 80548881 I12.9 Low sodium diet discussedB p still soft after stopping indapamide , will drop CCB/BRENDAN combo to 2.5/10.Cou nseled on diet/exerc iseWill follow up bp in 1mo, KATT Marks will also follow up home bp. Anxiety state 632389101 F41.1 Anxiety related to sister, Denies homicidal or suicidal ideation.D eclines therapist. Given wt loss and sleep issues with anxiety will stop trazadone start remeron, follow up in 1mo.After starting remeron his wt stable and sx improve will increase dose to 45mg Insomnia 027824186 G47.0 0 Better with Remeron, advised to augment with melatonin if needed Migraine 19561969 G43.90 9 Advised to stop fioricet due to age. Notes headaches have improved Chronic ki dney disease stage 3 364928510 N18.31 Anemia due to unknown mechanism 24978338 D64.9 Will repeat levels also on remeron. [id number] Leyla Roa MD Main Office [address] [place] [place] [address] 03/28/2022 09:42:37 03/28/2022 10:09:56 Hypertensive renal disease 10137824 I12.9 Low sodium diet discussedB p elevated will increase CCB/BRENDAN dose. Given just ccb dose increase will hold lab.Counse led on diet/exerc iseWill follow up bp in 1mo, KATT Marks will also follow up home bp. Anxiety state 373228337 F41.1 Anxiety related to sister, Denies homicidal or suicidal ideation.D [facility]. Given wt loss and sleep issues with anxiety will stop trazadone start remeron, follow up in 1mo.After starting remeron his wt stable and sx improve will increase dose to 45mg Insomnia 519013047 G47.0 0 Better with Remeron, advised to augment with melatonin if needed Chronic ki dney disease stage 3 687733118 N18.31 Anemia due to unknown mechanism 13353257 D64.9 Improving. [id number] Leyla Roa MD Main Office [address] [facility] [address] [place] [place] [address] 05/14/2022 09:53:01 05/14/2022 10:44:41 Adult health examination 824948278 Z00.00 Patient was counseled on healthy diet, exercise and nutrition due to Body mass index is 22.7 kg/m . Last PSADate: 05/18/21Res ult: 1.4Plan: on tamsulosin will repeat annually. Last Colonoscop y:Date: 03/21/16Resu lt: no polypsPlan : past age for screening. Vaccines:T d:02/07/18 Zoster rec: 11/16/2019, 01/16/2020 PCV13: 04/19/14PPSV 23: 12/27/15Inf luenza: 10/25/21Covi d: 03/27/20, 04/15/20, 11/18/20, 06/05/21, 10/25/21 bivalent Routine labs today Immunizati on status reviewed. Will screen based on risk factors. Regular dental and ophtho care advised as well as seat belt and sunscreen use. Distracted driving discussed. Medication reconciled . Advance directives discussed. Chronic ki dney disease stage 3 934787209 N18.31 Hypertensi ve renal disease 90027225 I12.9 Low sodium diet discussedC ounseled on medication adherence - will continue current regimen as BP well controlled .Counseled on diet/exerc iseBp little soft tells me higher at home he will check and let me know if still soft we will adjust meds. Hyperlipidemia 57626252 E78.5 Advance di rective discussed with patient 191750678 Z71.89 MOLST and HCP discussed Benign pro static hyperplasia 408472738 N40.0 [id number] Leyla Roa MD Main Office 36[address] [facility] 207 [facility] [place] [address] 10/31/2022 13:09:30 10/31/2022 14:35:31 Dysuria 13446712 R30.0 UA not concerning no blood. PSA ordered on PE labs, advised him to have done as BMP also ordered.Wi ll send urine to confirm also. Benign pro static hyperplasia 341345273 N40.0 on alpha bulmaro has uro apt next week.Remin ded to get lab work done as it has PSA levels already in order. Hypertensi ve renal disease 30890448 I12.9 BP on softer side he has been checking at home tells me it is a little higher, CM follows his bp if continues to drop he was advised to let us know so we can adjust his meds. Influenza vaccine needed 5214289408 106 Z23 Chronic ki dney disease stage 2 292843406 N18.2 [id number] Leyla Roa MD Main Office [address] [facility] [address] [facility] [place] [address] 04/19/2023 10:44:03 04/19/2023 11:54:04 Acute conjunctivitis 01626944 H10.33 SYMPTOMS:w hich eye(s)? bilateralr edness? yesdischar ge? yescrustin g or matting on waking? yesexposur e to someone with conjunctiv itis? no POSSIBLE CONTRAINDI CATIONS TO TELEPHONE TREATMENT: eye pain? noblurry vision? norecent treatment (within 1 month)? notrauma? nolupus or rheumatoid arthritis? no PROVIDER ACTION Reviewed nursing notes? yesRecomme nded action needs appointmen t Antibiotic treatment erythromyc in Call if no improvemen t. Although this could very well be viral, his discharge is purulent and yellow thus will send abx.Warm compress advised. Hand washing advised. Upper resp iratory infection 73964381 J06.9 Tylenol 15mg/kg for pain or fever q6h. Do not exceed package insert.Thr oat Lozenges.s alt water gargle.bonita quate hydration enforced.s judy sprays.res t enforced.h umidifier use enforced.T essalon pearls sent, honey also advised for cough.Home covid test neg, no body ache will hold flu. Will get RSV.Had flu, covid and rsv vaccine.No shortness of breath, no fever, sat at 97% RA and lungs CTA, low prob of PNA.ED precaution s discussed. [id number] Brien Cox MD Main Office [address] [facility] [address] [place] [place] [address] 04/26/2023 13:44:35 04/26/2023 14:10:25 Cough 12740375 R05.9 completed course of tessalon perles and pt reports of significan t improvemen ts-only experience s the cough at night, which he takes OTC cough medication but found the tessalon perles to be more effective- denies of any wheezing or SOB-lungs were CTAB-will provide a x4 day course of tessalon perles Acute conjunctivitis 537 87957 H10.33 -has been applying the erythromyc in eye ointment daily-symp toms have resolved [id number] Leyla Roa MD Main Office [address] [place] [address] 07/17/2023 10:57:50 07/17/2023 12:11:02 Advance directive discussed with patient 117247388 Z71.89 MOLST and HCP discussed Adult heal th examination 012700316 Z00.00 Patient was counseled on healthy diet, exercise and nutrition due to Body mass index is 23.5 kg/m . Last PSADate: 05/18/21Res ult: 1.4Plan: on tamsulosin will repeat annually. Last Colonoscop y:Date: 03/21/16Resu lt: no polypsPlan : past age for screening. Vaccines:T d:02/07/18 Zoster rec: 11/16/2019, 01/16/2020 PCV13: 04/19/14PPSV 23: 12/27/15PCV 20: script givenInflu felicitas: 10/31/22Cov id: 11/07/22RSV :11/07/22 Routine labs today Immunizati on status reviewed. Will screen based on risk factors. Regular dental and ophtho care advised as well as seat belt and sunscreen use. Distracted driving discussed. Medication reconciled . Advance directives discussed. Chronic ki dney disease stage 3 429653377 N18.31 Hypertensi ve renal disease 40175609 I12.9 Hyperlipidemia 55264938 E78.5 Benign pro static hyperplasia 361366277 N40.0 on alpha bulmaro has uro apt next week.Remin ded to get lab work done as it has PSA levels already in order. Anemia due to unknown mechanism 38172074 D64.9 Administra tion of pneumococcal vaccine 18142891 Z23 Peripheral vascular disease 270538441 I73.9 Notes heaviness b/l feet. Poor pulses.Braulio l get sudeep/pvr. [id number] Leyla Roa MD Main Office [address] [place] [address] 08/27/2023 14:11:38 08/27/2023 14:53:07 Neuropathy 825221259 G62.9 Location b/l feet. 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 [id number] Brien Cox MD Main Office [address] [place] [address] 09/19/2023 15:19:35 09/19/2023 15:37:44 COVID-19 013384054 U07.1 He will call if his symptoms worsen. He does not have renal disease. He was instructed to hold his statin while taking the paxlovid. We discussed the SE's and he will isolate until he is feeling better. [id number] Leyla Roa MD Main Office [address] [place] [address] 01/15/2024 10:19:58 01/15/2024 11:03:30 Chronic kidney disease stage 2 554324398 N18.2 Hypertensi ve renal disease 43288812 I12.9 bp well controlled will continue current regimen.En courage lifestyle modificati on.Follow up in AWV. Benign pro static hyperplasia 167930557 N40.0 on alpha bulmaro psa done, still having sx will refer to urology. Advance di rective discussed with patient [id number] Z71.89 MOLST and HCP discussed. MOLST Completed today. [id number] Willie Eugene MD Main Office [address] [facility] [address] [place] [address] 07/02/2024 09:49:07 07/02/2024 10:48:49 Pain of left breast [id number] N64.4 [id number] Acute low back pain 2788 81538 M54.50 [id number] check xray back and right hipwill get pmr evaldeclin es PTconsider tyl 500mg 1-2 tabs up to 3x/day Pain of hip region 71539 002 M25.551 [id number] Leyla Roa MD Main Office [address] [facility] [address] [place] [address] 09/01/2024 13:09:04 09/01/2024 14:09:29 Hypertensive renal disease [id number] I12.9 bp well controlled will continue current regimen.En couraged lifestyle modificati on.Home cuff compared it was comparable . Chronic ki dney disease stage 2 [id number] N18.2 Benign pro static hyperplasia [id number] N40.0 ED sx with enlarged prostate will start low dose tadalafil. Side effect discussed. If sx better he will hold tamsulosin to see if it helps with breast tenderness . [id number] Leyla Roa MD Main Office [address] [facility] [address] [place] [address] 10/21/2024 13:46:51 10/21/2024 14:29:30 Triggering of digit [id number] M65.233 [id number] - Patient reports symptoms consistent with trigger finger. No contractur es otherwise present. No erythema, palpable nodules, or edema.- Referring to hand surgery for further evaluation and interventi ons, such as possible corticoste roid injection. As noted patient has previously tolerated and responded to joint injections favorably. - Discourage d ongoing use of NSAIDs given age and kidney disease. Patient may alternativ lonnie take acetaminop hen. Conservati ve management with finger splint is also indicated until he can be seen by hand surgeon; placed order to DME supply.- Reviewed plan of care with patient who demonstrat es understand ing. Health Concerns Section Related Observation LastModified by Organization Detai ls LastModified Time None Recorded Concern Status LastModified by Organization Details LastModified Time None Recorded Advance Directives Directive Y: HCP Payers Insurance Date Sequence Insurance Name Policy Number Policy Durand Covered Member ID Durand Member ID Guarantor Name 10/30/2024 1 [place] [employer] Miller Rueda [id number] Miller Rueda 10/30/2024 2 [place] [id number] Miller Rueda [id number] Miller Rueda Notes Date Note Type Note Provider Name and Address Organization Details Recorded Time 4 text/html ROS as noted in the HPI His girlfriend got COVID and he tested this am and was also positive. Runny nose and throat pain and a mild cough. No fever/chills. No muscle aches but feeling fatigued. He had COVID about a year ago and was given paxlovid which he tolerated well. Brien Cox MD [address] [address], [place], [address], [facility] [place] 09/19/2023 15:36:40 4 text/html Hypertension F/UReported by PatientHPIFor lifestyle, patient reportsnot exercising regularlybut reportslimiting/avoiding salt. For associated symptoms, patient reportsno dizziness,no lightheadedness,no chest pain,no shortness of breath,no palpitations,no edema, andno calf pain with exertion. For medications, patient reportstaking medications as directed,no side effects from medication, andchecks blood pressure at home, range: (avg under 130/90's).ROS as noted in the HPI Miller presents for follow up.Bp little elevated, asymptomatic otherwise.wt seems to be stable per pt. Leyla Roa MD [address], [address], [facility] [place] 01/15/2024 10:56:38 5 text/html Left areola/mamillary pain approx 2 weeks. Confirmed no discharge. intermittent lower center back pain and right hip pain. No OTC pt states has always had sensitivity to L breast/nipple since teenagerbut now has pain - which is new over x 2 wksno dc, f/c no b/b dysfxnno h/o back/hip problemsint bothers him x several weeksaggrav by getting ooballev by walking Renato Ferguson PA-C [address] [facility] [address], [place], [address], [facility] [place] 07/02/2024 10:48:46 5 text/html Hypertension F/UReported by PatientHPIFor lifestyle, patient reportsnot exercising regularlybut reportslimiting/avoiding salt. For associated symptoms, patient reportsno dizziness,no lightheadedness,no chest pain,no shortness of breath,no palpitations,no edema, andno calf pain with exertion. For medications, patient reportstaking medications as directed,no side effects from medication, andchecks blood pressure at home, range: (avg under 130/90's). Erectile DysfunctionReported by PatientHPIFor severity, patient reportsworsening. For context, patient reportsnever able to maintain a hard erectionandnot able to achieve penetration. For duration, patient reportsfrequent/every time. For associated symptoms, patient reportsno dysuria,no penile discharge, andnormal libido.Also has bphROS as noted in the HPI Miller presents for follow up. Leyla Roa MD [address] [facility] [address], [place], [address], [facility] [place] 09/01/2024 14:06:25 5 text/html Musculoskeletal PainReported by PatientHPIFor quality, patient reportsaching(a soreness). For location, patient reportspain is not radiating,left hand (fourth finger (ring finger)), andfourth digit finger(pain feels like it is on the top of the finger.also reports pain in bilateral thumbs, and right finger. not associated with locking/trigger finger symptoms.). For duration, patient reportspresent for 1-6 months (a couple months)(may have had it in the past but not like this.). For timing, patient reportsconstant (every day)(worse at nightcan lock up on purpose at other times of day. worse to try to extend finger at night.). For associated symptoms, patient reportsno fever,no weak limbs,no tingling, andno numbness of the legs/feet(no numbness/tingling of hands). For adl (activities of daily living), patient reportsimprove with medication (naproxen (aleve), one capsule at night). For context, (prior history of oa, including of metacarpal joints.). For aggravating factors, (patient reports pain present at rest, aggravated when finger snaps and locks into flexed position. attempted extension of finger following locking is very painful, moreso at night.). For medications, (has taken naproxen approximately 4-5 times. patient notes he knows he is supposed to limit nsaid use with age and renal disease.).Gets cortisone shots for shoulders and knees, and responds/tolerates well.ROS as noted in the HPI Miller is an 84 year old M with PMH of anxiety, HLD, glaucoma, epiretinal membrane, GERD, CKD Stage 2, BPH, carpometacarpal OA, LBP, migraine, cervical radiculopathy, neuropathy, insomnia, JOVI.He presents today for trigger finger of his left hand that is keeping him awake at night with pain. Leyla Roa MD [address] [address], [place], [address], [facility] 10/21/2024 17:21:35
== END 2025-01-06 09:57 | disposition home or self-care (01) ==
LOC: HO.HMGAL 09:56
PROVIDERS: PCP Family Medicine; Visit Provider Registered Nurse Emergency
DX: J30.89 Other allergic rhinitis (principal)
CPT/HCPCS: 95117; 95165

== ENCOUNTER 2025-02-08 10:35 | Outpatient (AMB) | payer MEDICARE, SELFPAY ==
--- OUTSIDE RECORDS SUMMARY | 2025-02-08 13:02 | XMS_ITS | Clinical Summary ---
Author Organization [facility] Address [address] [place] [address] Phone Care Team Providers Care Site Interpreter Name Role Phone Fior Chavez MD Primary Care Provider [phone] Allergies Active Allergy Reactions Criticality Noted Date [...] not to disclose 2024 11:47 AM EST Last Filed Vital Signs Vital Sign Reading [...] age to complete this topic Insurance MEDICARE [facility] Care Teams Site Interpreter Relationship Specialty Start Date End Date Fior Chavez MD [address] [phone] PCP - General 01/04/22
--- OUTSIDE RECORDS SUMMARY | 2025-02-08 13:02 | XMS_ITS | Clinical Summary ---
Author Organization [facility], Address [address] [place] [address] [place] [address] Phone Care Team Providers Care Filenet Architect Name Role Phone Fior Chavez MD Primary Care Provider [phone] Allergies Active Allergy Reactions Criticality Noted Date [...] age to complete this topic Insurance Medicare [facility] Care Teams Filenet Architect Relationship Specialty Start Date End Date Fior Chavez MD [address] [address] PCP - General Family Medicine 09/22/21
== END 2025-02-08 10:35 | disposition home or self-care (01) ==
LOC: HO.HMGAL 10:35
PROVIDERS: PCP Family Medicine; Visit Provider Registered Nurse Emergency
DX: J30.89 Other allergic rhinitis (principal)
CPT/HCPCS: 95117; 95165